=== PATIENT | female | born 1930 | race Hispanic/Latino ===

== ENCOUNTER 2016-05-28 11:42 | Inpatient (IN) | payer MEDICARE, BC ==
[2016-05-28 11:57] VITALS: BMI 25.8
[2016-05-28] MEDS ORDERED: Sodium Chloride 0.9% 1,000 ML IV STA (12:00)
[2016-05-28 12:13] LABS: ADD MANUAL DIFF? NO
[2016-05-28 12:16] LABS: BASO # 0.02 K/mm3 (0.0-2.0); BASO % 0.2 % (0.0-3.0); EOS % 0.2 % (1.5-5.0); GRAN # 8.65 (1.4-6.5); GRAN % 79.1 % (50.0-68.0); HEMATOCRIT 36.7 % (36.0-48.0); LYMPH # 1.8 (1.2-3.4); LYMPH % 16.4 % (22.0-35.0); MEAN CELL VOLUME 89.1 fL (80.0-105.0); MEAN CORPUSCULAR HEMOGLOBIN 31.8 pg (25.0-35.0); MEAN CORPUSCULAR HGB CONC 35.7 g/dl (31.0-37.0); MEAN PLATELET VOLUME 9.1 fl (7.0-11.0); MONO # 0.5 (0.1-0.6); MONO % 4.1 % (1.0-6.0); PLATELET COUNT 244 10^3/uL (120.0-450.0); WHITE BLOOD COUNT 10.9 10^3/ul (4.5-11.0)
[2016-05-28 12:28] LABS: INR 1.04 (0.93-1.08); PARTIAL THROMBOPLASTIN TIME 24.5 Seconds (23.7-30.8)
[2016-05-28 12:29] LABS: ALB/GLOB RATIO 1.3 (1.1-1.8); ALKALINE PHOSPHATASE 103 U/L (38-133); ALT/SGPT 20 U/L (7-56); AST/SGOT 30 U/L (15-39); BILIRUBIN,TOTAL 0.8 mg/dL (0.2-1.3); BLOOD UREA NITROGEN 12 mg/dL (7-21); CALCIUM 8.9 mg/dL (8.4-10.5); CARBON DIOXIDE 22 mmol/L (21-33); CHLORIDE 97 mmol/L (98-107); GFR AFRICAN-AMERICAN > 60; GLUCOSE,RANDOM 140 mg/dL (70-110); POTASSIUM 4.1 mmol/L (3.6-5.0); SODIUM 130 mmol/L (132-148); TOTAL PROTEIN 7.7 g/dL (5.8-8.3)
[2016-05-28 12:40] LABS: TROPONIN I 0.01 ng/mL
[2016-05-28 12:46] LABS: URINE BILIRUBIN NEGATIVE (NEGATIVE); URINE BLOOD TRACE-INTACT (NEGATIVE); URINE GLUCOSE (UA) NEGATIVE (NEGATIVE); URINE KETONE 15 mg/dL (NEGATIVE); URINE LEUKOCYTE ESTERASE NEGATIVE Leu/uL (NEGATIVE); URINE PROTEIN TRACE mg/dL (<30 mg/dL); URINE UROBILINOGEN 0.2 E.U./dL (<1 E.U./dL)
[2016-05-28 12:47] LABS: URINE APPEARANCE SL CLOUDY (CLEAR); URINE COLOR YELLOW (YELLOW)
--- NOTE | 2016-05-28 12:51 | ED PDOC ---
Arrival/HPI - General Chief Complaint: Altered Mental Status Time Seen by Provider: 05/28/16 11:47 Historian: Caregiver EM Caveat: Altered Mental Status - History of Present Illness Narrative History of Present Illness (Text): 05/28/16 11:47 A 85 year old female is brought into the emergency department via EMS for altered mental status. Patient's caregiver states patient woke up this morning with an altered mental status. She states at baseline the patient is alert, oriented x3, speaks without difficulty and is functional. She states last night , before bed she was at her normal mental status. This morning when the patient woke up she was aphasic. Caregiver notes the patient had one episode of vomiting prior to arrival. HPI and ROS limited due to patient's altered mental status. PMD: Dr. Lin Past Medical History - Provider Review Nursing Documentation Reviewed: Yes - Tetanus Immunization Tetanus Immunization: Unknown - Cardiac Hx Cardiac Disorders: Yes Hx Hypertension: Yes - Pulmonary Hx Respiratory Disorders: No - Neurological Hx Neurological Disorder: Yes Hx Dementia: Yes - HEENT Hx HEENT Disorder: No - Renal Hx Renal Disorder: No - Endocrine/Metabolic Hx Endocrine Disorders: Yes Hx Hypothyroidism: Yes - Hematological/Oncological Hx Blood Disorders: No - Integumentary Hx Dermatological Disorder: No - Musculoskeletal/Rheumatological Hx Musculoskeletal Disorders: Yes Hx Falls: Yes Hx Osteoporosis: Yes - Gastrointestinal Hx Gastrointestinal Disorders: Yes Hx Diarrhea: Yes (CHRONIC) - Genitourinary/Gynecological Hx Genitourinary Disorders: Yes Hx Urinary Tract Infection: Yes - Psychiatric Hx Psychophysiologic Disorder: Yes Hx Depression: Yes Hx Emotional Abuse: No Hx Physical Abuse: No Hx Substance Use: No - Surgical History Hx Appendectomy: Yes - Anesthesia Hx Anesthesia: Yes - Suicidal Assessment Feels Threatened In Home Enviroment: No Family/Social History - Physician Review Nursing Documentation Reviewed: Yes Family/Social History: No Known Family HX Smoking Status: Never Smoked Hx Alcohol Use: No Hx Substance Use: No Hx Substance Use Treatment: No Allergies/Home Meds Allergies/Adverse Reactions: Allergies No Known Allergies Allergy (Verified 05/28/16 11:57) Home Medications: Home Meds Medication Instructions Recorded Confirmed Acetyl/Methyl-B12/Lmefolate Ca 1 tab PO DAILY 05/28/16 05/28/16 [l-Methyl-Mc Nac Tablet] Cholecalciferol (Vitamin D3) 1 tab PO DAILY 05/28/16 05/28/16 [Vitamin D3] Levothyroxine [Synthroid] 1.5 tab PO DAILY 05/28/16 05/28/16 Zolpidem [Ambien] 10 mg PO HS 05/28/16 05/28/16 Review of Systems - Review of Systems Systems not reviewed;Unavailable: Altered Mental Status Physical Exam - Physical Exam Narrative Physical Exam (Text): - Physical exam Head: Present: Atraumatic, Normocephalic Pupils: Present: PERRL Extraocular Muscles: Present: EOMI Conjunctiva: Present: Normal Mouth: Present: Moist Mucous Membranes Neck: Present: Normal Range of Motion. No: MIDLINE TENDERNESS, Paraspinal Tenderness Respiratory/Chest: Present: Clear to Auscultation, Good Air Exchange. No: Respiratory Distress, Accessory Muscle Use, Tachypneic Cardiovascular: Present: Regular Rate and Rhythm, Normal S1, S2, Peripheral Pulses Present. No: Murmurs Abdomen: Present: Normal Bowel Sounds, No: Tenderness, Peritoneal Signs, Rebound, Guarding, Distention Back: Present: Normal Inspection. No: Midline Tenderness, Paraspinal Tenderness Upper Extremity: Present: Normal Inspection. No: Cyanosis, Edema Lower Extremity: Present: Normal Inspection. No: Edema Neurological: Patient is not speaking but is able to follow commands. No other focal neurological deficits. Skin: Present: Warm, Dry, Normal Color. No: Rashes Lymphatic: Present: OX3, NI, NC Psychiatric: Present: Awake and Alert. Vital Signs Reviewed: Yes Vital Signs Temp Pulse Resp BP Pulse Ox 05/28/16 17:00 99.8 F H 85 18 125/77 92 L 05/28/16 15:00 78 18 117/79 90 L 05/28/16 13:46 100 H 20 140/83 95 05/28/16 11:54 100.8 F H Temperature: Febrile Blood Pressure: Normal Pulse: Regular Respiratory Rate: Normal Appearance: Positive for: Non-Toxic Pain Distress: None Mental Status: No: Alert and Oriented X 3 (Patient is nonverbal but able to follow commands) Finger Stick Blood Glucose: 148 Medical Decision Making ED Course and Treatment: 05/28/16 11:47 Impression: A 85 year old female with an altered mental status. On examination the patient is awake, alert but aphasic. Patient is able to follow commands. Differential Diagnosis include but are not limited to: Pneumonia vs. UTI vs. Infection vs. Dehydration Plan: -- EKG -- Chest X-ray -- Labs -- Urinalysis -- Zofran and IV Fluids -- Reassess and disposition Progress Notes: EKG: Ordered, reviewed, and independently interpreted by me. Rate : 90 BPM Rhythm : NSR Interpretation : No ST-segment elevations, normal intervals. 05/28/16 13:28 Chest x-ray: As read by me, Cardiomegaly with bilateral infiltrates. 05/28/16 14:16 pt will be admitted with dx of PNA and UTI abx ordered family bedside, aware of and agree with plan dw Dr. Kaye, accepted admission 05/28/16 14:[address]: Creator and Dictator : ALVARO WATTS MD IMPRESSION: Virtually nondiagnostic examination due to motion degraded images. Allowing for this, no acute intracranial hemorrhage. Mild global parenchymal volume loss. Ventricular dilatation is out of proportion to the sulcal prominence and normal pressure hydrocephalus is a consideration. Clinical correlation and follow-up is advised. 05/28/16 14:15 Abdomen/Pelvis CT: Creator and Dictator: ALVARO WATTS MD IMPRESSION: 1. Large right paraesophageal hiatal hernia. 2. Fecal stasis in the sigmoid colon and rectum. Sigmoid diverticulosis without CT evidence for acute diverticulitis. No evidence of bowel obstruction. 3. 3 mm nonobstructing stone in the lower pole of the left kidney. 4. Small bilateral pleural effusions. - Lab Interpretations Microbiology Results: Microbiology Results 05/28/16 12:30 Blood-Venous Blood Culture - Preliminary NO GROWTH AFTER 4 DAYS 05/28/16 12:00 Blood-Venous Blood Culture - Preliminary NO GROWTH AFTER 4 DAYS 05/28/16 12:30 Urine Urine Culture - Final Klebsiella Pneumoniae Ssp Pneu Lab Results: 05/28/16 12:00 05/28/16 12:00 Lab Results 05/28/16 12:30: pO2 106 H, VBG pH 7.39, VBG pCO2 38.0 L, VBG HCO3 23.0, VBG Total CO2 24.2, VBG O2 Sat (Calc) 99.4 H, VBG Base Excess -1.7 L, VBG Potassium 4.1, Sodium 134.0, Chloride 101.0, Glucose 154 H, Lactate 2.3 H, FiO2 21.0, Venous Blood Potassium 4.1, Urine Color Yellow, Urine Appearance Sl cloudy, Urine pH 6.0, Ur Specific [place] 1.025, Urine Protein Trace H, Urine Glucose ( UA) Negative, Urine Ketones 15 H, Urine Blood Trace-intact H, Urine Nitrate Negative, Urine Bilirubin Negative, Urine Urobilinogen 0.2, Ur Leukocyte Esterase Negative, Urine RBC 0 - 2, Urine WBC 10 - 15, Ur Epithelial Cells 0 - 2 , Urine Bacteria Mod 05/28/16 12:00: WBC 10.9 D, RBC 4.12, Hgb 13.1, Hct 36.7, MCV 89.1, MCH 31.8, MCHC 35.7, RDW 13.0, Plt Count 244, MPV 9.1, Gran % 79.1 H, Lymph % (Auto) 16.4 L, [place] % (Auto) 4.1, Eos % (Auto) 0.2 L, Baso % (Auto) 0.2, Gran # 8.65 H, Lymph # 1.8, [place] # 0.5, Eos # 0.0, Baso # 0.02, PT 11.2, INR 1.04, APTT 24.5, Sodium 130 L, Chloride 97 L, Potassium 4.1, Carbon Dioxide 22, Anion Gap 15, BUN 12, Creatinine 0.5, Est GFR ( Amer) > 60, Est GFR (Non-Af Amer) > 60 , Random Glucose 140 H, Calcium 8.9, Total Bilirubin 0.8, AST 30, ALT 20, Alkaline Phosphatase 103, Lactate Dehydrogenase 562, Total Creatine Kinase 55, Troponin I 0.01, NT-Pro-B Natriuret Pep 204, Total Protein 7.7, Albumin 4.3, Globulin 3.4, Albumin/Globulin Ratio 1.3 I have reviewed the lab results: Yes - RAD Interpretation Radiology Orders: 05/28/16 11:49 HEAD W/O CONTRAST [CT] Stat 05/28/16 11:52 CHEST PORTABLE [RAD] Stat 05/28/16 13:09 ABD & PELVIS W/O PO OR IV CONT [CT] Stat - Medication Orders Current Medication Orders: Discontinued Medications Acetaminophen (Tylenol 650 Mg Supp) 650 mg RC STAT STA Stop: 05/28/16 14:21 Last Admin: 05/28/16 14:56 Dose: 650 MG Enoxaparin Sodium (Lovenox) 40 mg SC DAILY DAVID PRN Reason: Protocol Last Admin: 05/30/16 09:43 Dose: 40 MG Protocol for PTT Monitoring Document 05/30/16 09:43 SD (Rec: 05/30/16 09:43 [place] [id number]) Protocol Protocol for PTT Monitoring Following clinical pathway protocol (regime/therapy) Subcutaneous Administrations Document 05/30/16 09:43 SD (Rec: 05/30/16 09:43 [place] [id number]) Injection Site MAR Injection Site Right Abdomen Charges for Administration # of Subcutaneous Administrations 1 Sodium Chloride (Sodium Chloride 0.9%) 1,000 mls @ 1,000 mls/hr IV .Q1H STA Stop: 05/28/16 12:59 Last Admin: 05/28/16 12:45 Dose: 1,000 MLS/HR eMAR Start Stop Document 05/28/16 12:45 EWO (Rec: 05/28/16 12:46 EWO [id number]) Intravenous Solution Start Date 05/28/16 Start Time 12:45 End Date 05/28/16 End time 13:45 Total Infusion Time 60 Ceftriaxone Sodium (Rocephin 1 Gram Ivpb) 100 mls @ 200 mls/hr IV STAT STA PRN Reason: Protocol Stop: 05/28/16 13:36 Last Admin: 05/28/16 13:51 Dose: 200 MLS/HR eMAR Start Stop Document 05/28/16 13:51 EWO (Rec: 05/28/16 13:54 EWO [id number]) Intravenous Solution Start Date 05/28/16 Start Time 13:54 End Date 05/28/16 End time 14:24 Total Infusion Time 30 Azithromycin (Zithromax 500mg In Ns) 250 mls @ 166.667 mls/hr IV STAT STA PRN Reason: Protocol Stop: 05/28/16 15:47 Last Admin: 05/28/16 14:57 Dose: 166.667 MLS/HR eMAR Start Stop Document 05/28/16 14:57 EWO (Rec: 05/28/16 14:57 EWO [id number]) Intravenous Solution Start Date 05/28/16 Start Time 14:57 Dextrose/Sodium Chloride (Dextrose 5%/0.45% Ns 1000 Ml) 1,000 mls @ 50 mls/hr IV .Q20H DAVID Last Admin: 05/30/16 09:44 Dose: Levofloxacin/Dextrose (Levaquin 500mg) 100 mls @ 100 mls/hr IVPB DAILY DAVID Last Admin: 05/30/16 09:43 Dose: 100 MLS/HR eMAR Start Stop Document 05/30/16 09:43 SD (Rec: 05/30/16 09:43 SD [id number]) Intravenous Solution Start Date 05/30/16 Start Time 09:43 End Date 05/30/16 End time 10:43 Total Infusion Time 60 Metronidazole (Flagyl) 100 mls @ 100 mls/hr IVPB Q8 DAVID PRN Reason: Protocol Last Admin: 05/29/16 06:01 Dose: 100 MLS/HR eMAR Start Stop Document 05/29/16 06:01 CHIQUIS (Rec: 05/29/16 06:01 CHIQUIS [id number]) Intravenous Solution Start Date 05/29/16 Start Time 06:01 End Date 05/29/16 End time 07:01 Total Infusion Time 60 Potassium Chloride (Potassium Chloride 20 Meq/100 Ml) 100 mls @ 50 mls/hr IVPB ONCE ONE Stop: 05/29/16 13:30 Last Admin: 05/29/16 12:22 Dose: 50 MLS/HR eMAR Start Stop Document 05/29/16 12:22 JFR (Rec: 05/29/16 12:22 JFR [id number]) Intravenous Solution Start Date 05/29/16 Start Time 12:22 End Date 05/29/16 End time 14:22 Total Infusion Time 120 Levothyroxine Sodium (Synthroid) 50 mcg PO 0600 [facility] Last Admin: 05/30/16 07:44 Dose: 50 MCG Ondansetron HCl (Zofran Inj) 4 mg IVP STAT STA Stop: 05/28/16 12:01 Last Admin: 05/28/16 12:45 Dose: 4 MG IVP Administration Document 05/28/16 12:45 EWO (Rec: 05/28/16 12:45 EWO [id number]) Charges for Administration # of IVP Administrations 1 Ondansetron HCl (Zofran Inj) 4 mg IVP Q4H PRN PRN Reason: Nausea/Vomiting Last Admin: 05/28/16 21:42 Dose: 4 MG IVP Administration Document 05/28/16 21:42 CHIQUIS (Rec: 05/28/16 21:42 [place] [facility] [id number] Charges for Administration # of IVP Administrations 1 Pantoprazole Sodium (Protonix Inj) 40 mg IVP DAILY DAVID Last Admin: 05/30/16 09:43 Dose: 40 MG IVP Administration Document 05/30/16 09:43 SD (Rec: 05/30/16 09:43 [place] [id number]) Charges for Administration # of IVP Administrations 1 - Scribe Statement The provider has reviewed the documentation as recorded by the Scribe Erna Lane Provider Scribe Attestation: All medical record entries made by the Scribe were at my direction and personally dictated by me. I have reviewed the chart and agree that the record accurately reflects my personal performance of the history, physical exam, medical decision making, and the department course for this patient. I have also personally directed, reviewed, and agree with the discharge instructions and disposition. Disposition/Present on Arrival - Present on Arrival Any Indicators Present on Arrival: No History of DVT/PE: No History of Uncontrolled Diabetes: No Urinary Catheter: No History of Decub. Ulcer: No History Surgical Site Infection Following: None - Disposition Have Diagnosis and Disposition been Completed?: Yes Diagnosis: UTI (urinary tract infection), Pneumonia Disposition: HOSPITALIZED Disposition Time: 14:17 Patient Plan: Admission Condition: GOOD
[2016-05-28 12:53] LABS: VENOUS BLOOD GAS BASE EXCESS -1.7 mmol/L (0.0-2.0); VENOUS BLOOD PH 7.39 (7.32-7.43)
[2016-05-28 13:00] LABS: URINE RBC 0 - 2 /hpf (0-2)
[2016-05-28 13:01] LABS: URINE BACTERIA MOD (NEG); URINE EPITHELIAL CELLS 0 - 2 /hpf (0-5)
[2016-05-28] MEDS ORDERED: cefTRIAXone 1 gm 100 ML IV STA (13:07)
--- NOTE | 2016-05-28 14:00 | CT ---
PROCEDURE: CT HEAD WITHOUT CONTRAST. HISTORY: DONAHUE x2 weeks COMPARISON: None available. TECHNIQUE: Axial computed tomography images were obtained through the head/brain without intravenous contrast. Radiation dose: Total exam DLP = 677.45 mGy-cm. FINDINGS: HEMORRHAGE: No intracranial hemorrhage. BRAIN: Examination is virtually nondiagnostic due to motion degraded images. Allowing for this, there is no mass, mass effect or abnormal extra-axial fluid collection. There are coarse atherosclerotic calcifications in the cavernous carotid arteries. VENTRICLES: There is moderate ventricular dilatation, out of proportion for sulcal prominence related to global parenchymal volume loss. CALVARIUM: Unremarkable. PARANASAL SINUSES: Unremarkable as visualized. No significant inflammatory changes. MASTOID AIR CELLS: Unremarkable as visualized. No inflammatory changes. OTHER FINDINGS: None. IMPRESSION: Virtually nondiagnostic examination due to motion degraded images. Allowing for this, no acute intracranial hemorrhage. Mild global parenchymal volume loss. Ventricular dilatation is out of proportion to the sulcal prominence and normal pressure hydrocephalus is a consideration. Clinical correlation and follow-up is advised.
--- NOTE | 2016-05-28 14:13 | CT ---
PROCEDURE: CT Abdomen and Pelvis without intravenous contrast HISTORY: Nausea and vomiting COMPARISON: 02/14/2012 TECHNIQUE: CT scan of the abdomen and pelvis was performed without administration of oral and intravenous contrast. Coronal and sagittal reformatted images were obtained. Radiation dose: Total exam DLP = images were obtained 964.17 mGy-cm. FINDINGS: LOWER THORAX: There are small bilateral pleural effusions. LIVER: Unremarkable. No gross lesion or ductal dilatation. GALLBLADDER AND BILE DUCTS: Gallbladder is distended. No calcified gallstones. PANCREAS: Mild diffuse atrophy. No gross lesion or ductal dilatation. SPLEEN: Unremarkable. ADRENALS: Mild thickening of the right adrenal gland. No discrete nodule. KIDNEYS AND URETERS: Both kidneys are normal in size. There is a 3 mm nonobstructing stone in the lower pole of the left kidney. There is no hydronephrosis. VASCULATURE: The aorta is tortuous. There atherosclerotic aortoiliac calcifications. No aortic aneurysm. BOWEL: The small bowel loops are normal in caliber. There is sigmoid diverticulosis without CT evidence for acute diverticulitis. There is fecal stasis in the sigmoid colon and rectum. APPENDIX: Unremarkable. Normal appendix. PERITONEUM: No free fluid. No free air. LYMPH NODES: No enlarged lymph nodes. BLADDER: Within normal limits. REPRODUCTIVE: The uterus is normal in size. BONES: There is severe levoscoliosis in the lumbar spine. There is diffuse bone demineralization and multilevel degenerative changes. OTHER FINDINGS: There is enlarged right paraesophageal hiatal hernia. IMPRESSION: 1. Large right paraesophageal hiatal hernia. 2. Fecal stasis in the sigmoid colon and rectum. Sigmoid diverticulosis without CT evidence for acute diverticulitis. No evidence of bowel obstruction. 3. 3 mm nonobstructing stone in the lower pole of the left kidney. 4. Small bilateral pleural effusions.
[2016-05-28] MEDS ORDERED: Azithromycin 500MG/NS 250ml 250 ML IV STA (14:18)
--- NOTE | 2016-05-28 14:20 | RAD ---
HISTORY: cough COMPARISON: No prior. FINDINGS: LUNGS: The lungs are clear. There is mild venous congestion. PLEURA: No significant pleural effusion identified, no pneumothorax apparent. CARDIOVASCULAR: There is mild cardiomegaly. Atherosclerotic aortic arch calcifications are present. . OSSEOUS STRUCTURES: There is an old deformity in the left proximal humerus. VISUALIZED UPPER ABDOMEN: Normal. OTHER FINDINGS: There is a right pericardiac hiatal hernia. IMPRESSION: Mild pulmonary venous congestion. Cardiomegaly. No active pulmonary disease. Right paracardiac hiatal hernia with
--- NOTE | 2016-05-28 15:25 | CP.PCM.HP ---
<Jason Nunez - Last Filed: 05/28/16 15:16> History of Present Illness - History of Present Illness History of Present Illness: 85 y/o F with PMH hypothyroidism, dyslipidemia, osteoarthritis, and hx of compression fracture presents to the ED for AMS for the past day. Pt is accompanied by her son who provides medical hx. Son states that last night his mother was talking normally and not complaining of anything. Pt woke up this morning confused and nonverbal. Pt also has a production clerks supervisor, who stays with her . Purchasing Agent said that this morning, pt had bladder and bowel incontinence, which is very unusual for the patient. Pt was also noted to throw up several times. Emesis was nonbloody and nonbilious, containing food particles. Pt has no prior episodes of altered mental status. Unable to obtain full review of systems as the patient is confused and unable to follow commands at this time. PMH: Hypothyroidism, dyslipidemia, osteoarthritis, and hx of compression fracture Surgical Hx: Ankle fracture Family Hx: Mother of heart condition in s Social Hx: No alcohol, tobacco, or illicit drug use Allergies: NKDA Medications: Levothyroxine, Zetia, Ambien, L-methyl MC nac, D3 Present on Admission - Present on Admission Any Indicators Present on Admission: No Review of Systems - Review of Systems Systems not reviewed;Unavailable: Altered Mental Status Past Patient History - Tetanus Immunizations Tetanus Immunization: Unknown - Past Social History Smoking Status: Never Smoked - CARDIAC Hx Cardiac Disorders: Yes Hx Hypertension: Yes - PULMONARY Hx Respiratory Disorders: No - NEUROLOGICAL Hx Neurological Disorder: Yes Hx Dementia: Yes - HEENT Hx HEENT Problems: No - RENAL Hx Chronic Kidney Disease: No - ENDOCRINE/METABOLIC Hx Endocrine Disorders: Yes Hx Hypothyroidism: Yes - HEMATOLOGICAL/ONCOLOGICAL Hx Blood Disorders: No - INTEGUMENTARY Hx Dermatological Problems: No - MUSCULOSKELETAL/RHEUMATOLOGICAL Hx Musculoskeletal Disorders: Yes Hx Falls: Yes Hx Osteoporosis: Yes - GASTROINTESTINAL Hx Gastrointestinal Disorders: Yes Hx Diarrhea: Yes (CHRONIC) - GENITOURINARY/GYNECOLOGICAL Hx Genitourinary Disorders: Yes Hx Urinary Tract Infection: Yes - PSYCHIATRIC Hx Psychophysiologic Disorder: Yes Hx Depression: Yes Hx Emotional Abuse: No Hx Physical Abuse: No Hx Substance Use: No - SURGICAL HISTORY Hx Appendectomy: Yes - ANESTHESIA Hx Anesthesia: Yes Meds Allergies/Adverse Reactions: Allergies Allergy/AdvReac Type Severity Reaction Status Date / Time No Known Allergies Allergy Verified 05/28/16 11:57 Physical Exam - Constitutional Appears: No Acute Distress, Confused - Head Exam Head Exam: ATRAUMATIC, NORMAL INSPECTION, NORMOCEPHALIC - Eye Exam Eye Exam: Normal appearance, PERRL - ENT Exam ENT Exam: Mucous Membranes Moist, Normal Exam - Respiratory Exam Respiratory Exam: Clear to Auscultation Bilateral, NORMAL BREATHING PATTERN. absent: Rhonchi, Wheezes - Cardiovascular Exam Cardiovascular Exam: RRR, +S1, +S2 - GI/Abdominal Exam GI & Abdominal Exam: Normal Bowel Sounds, Soft. absent: Tenderness - Extremities Exam Extremities exam: Positive for: normal inspection, pedal edema. Negative for: calf tenderness - Neurological Exam Neurological exam: Alert Additional comments: Responsive to painful stimuli. Unable to follow commands or verbal cues. - Skin Skin Exam: Intact, Normal Color, Warm Results - Vital Signs Recent Vital Signs: Last Vital Signs Temp 100.8 F H 05/28/16 11:54 Pulse 100 H 05/28/16 13:46 Resp 20 05/28/16 13:46 BP 140/83 05/28/16 13:46 Pulse Ox 95 05/28/16 13:46 - Labs Result Diagrams: 05/28/16 12:00 05/28/16 12:00 Assessment & Plan - Assessment and Plan (Free Text) Plan: 85 y/o F with PMH hypothyroidism, dyslipidemia, osteoarthritis, and hx of compression fracture presents to the ED for AMS. Head CT was unremarkable for any acute findings. Abdomen and pelvis CT did not show any acute pathology. Chest x-ray revealed mild cardiomegaly and possible b/l infiltrates. Pt was also noted to be febrile on admission. Pt may have had seizure or infectious etiology likely causing AMS. Will hold ambien at this time to evaluate mental status in AM. Pt does have a living will and will be DNR/DNI. Pt will be admitted to the hospital for further workup. 1. AMS - Infectious vs seizure vs CVA etiology - Procal ordered - Levaquin and flagyl ordered, will cover for aspiration pneumonia - Neurochecks q4h - Brain MRI in AM - EEG - Echocardiogram - TSH ordered - Neurology consulted, Dr. Niurka Monahan - Fall, seizure, aspiration precautions - Swallow eval 2. Hyponatremia - Urine Na - Urine Osm - D5W 1/2 NS @ 50 cc/hr 3. Hx of dyslipidemia - Restart zetia 4. Hx of hypothyroidism - Restart levothyroxine 5. PPX - Protonix - Lovenox - Zofran Seen, reviewed, and discussed with attending Mayra, PGY-1 <Mikki MINA,[employer] - Last Filed: 05/28/16 17:45> Results - Vital Signs Recent Vital Signs: Last Vital Signs Temp 99.8 F H 05/28/16 17:00 Pulse 85 05/28/16 17:00 Resp 18 05/28/16 17:00 BP 125/77 05/28/16 17:00 Pulse Ox 92 L 05/28/16 17:00 - Labs Result Diagrams: 05/28/16 12:00 05/28/16 12:00 Labs: Laboratory Results - last 24 hr 05/28/16 05/28/16 15:30 16:30 pO2 201 H VBG pH 7.41 VBG pCO2 35.0 L VBG HCO3 22.2 VBG O2 Sat (Calc) 99.7 H VBG Base Excess -1.9 L TSH 3rd Generation 3.76 Attending/Attestation - Attestation I have personally seen and examined this patient.: Yes I have fully participated in the care of the patient.: Yes I have reviewed all pertinent clinical information: Yes Notes (Text): Patient was seen and examined with medical billing service .Agreed with resident assessment and plan. 85 F with PMH of Hypothryoidism, OA, bed and wheel chair bound was admitted with change of mental status,unable to talk ,last time was seen talking last night, has fever,possible right lower lobe aspiration Pneumonia, possible seizure/less likely CVA as she was found to be incontinence of urine and stool, We will start patient on IV antibiotics, we will follow up cultures and will check procalcitonin level. We will also get MRI of ,EEG and Neuro consult. Patient is DNR/DNI, no tube feeding, no Hemodialysis as per living will Management plan was discussed in detail with patient son who was at bed side. Education was provided.
[2016-05-28 16:05] LABS: VENOUS BLOOD GAS BASE EXCESS -1.9 mmol/L (0.0-2.0); VENOUS BLOOD PH 7.41 (7.32-7.43)
[2016-05-28] MEDS: Dextrose 5%/0.45% NS 1,000 ML IV SCH (16:19)
--- NOTE | 2016-05-28 18:20 | CARD ---
APPROVED REPORT EKG Measurement Heart [id number] <Conclusion> Normal sinus rhythm Nonspecific ST and T wave abnormality Prolonged QT Abnormal ECG
[2016-05-28] MEDS: metroNIDAZOLE IV 500 mg/100 ml 100 ML IVPB SCH (21:40)
[2016-05-29] MEDS: metroNIDAZOLE IV 500 mg/100 ml 100 ML IVPB SCH (06:01)
[2016-05-29] MEDS: Levothyroxine 50 MCG TAB PO SCH ×2 (06:03→06:05)
[2016-05-29] MEDS: Enoxaparin 40 mg Syringe SC SCH (09:45)
[2016-05-29 10:29] LABS: HEMATOCRIT 32.6 % (36.0-48.0); MEAN CELL VOLUME 89.1 fL (80.0-105.0); MEAN CORPUSCULAR HEMOGLOBIN 31.4 pg (25.0-35.0); MEAN CORPUSCULAR HGB CONC 35.3 g/dl (31.0-37.0); MEAN PLATELET VOLUME 9.1 fl (7.0-11.0); RED CELL DISTRIBUTION WIDTH 13.2 % (11.5-14.5)
[2016-05-29 10:38] LABS: ALB/GLOB RATIO 1.2 (1.1-1.8); ALKALINE PHOSPHATASE 76 U/L (38-133); ALT/SGPT 17 U/L (7-56); AST/SGOT 35 U/L (15-39); BLOOD UREA NITROGEN 9 mg/dL (7-21); CARBON DIOXIDE 24 mmol/L (21-33); CHLORIDE 98 mmol/L (95-110); GFR AFRICAN-AMERICAN > 60; GLUCOSE,RANDOM 111 mg/dL (70-110); POTASSIUM 3.5 mmol/L (3.6-5.0); SODIUM 131 mmol/L (132-148); TOTAL PROTEIN 6.5 g/dL (5.8-8.3)
--- NOTE | 2016-05-29 11:03 | CP.PCM.PN ---
<Jason Nunez - Last Filed: 05/29/16 11:28> Subjective - Date & Time of Evaluation Date of Evaluation: 05/29/16 Time of Evaluation: 11:00 - Subjective Subjective: Pt seen and examined at bedside. No acute events overnight. Pt is more alert today and able to respond appropriately to commands. Pt is NPO at this time. Denies CP, SOB, N/V/D, fevers. Objective - Vital Signs/Intake and Output Vital Signs (last 24 hours): Temp Pulse Resp BP Pulse Ox 98.5 F 82 19 122/72 96 05/29/16 05:45 05/29/16 10:00 05/29/16 05:45 05/29/16 05:45 05/29/16 05:45 Intake and Output: 05/29/16 05/29/16 06:59 18:59 Intake Total 600 Balance 600 - Medications Medications: Current Medications Enoxaparin Sodium (Lovenox) 40 mg SC DAILY DAVID PRN Reason: Protocol Last Admin: 05/29/16 09:45 Dose: 40 mg Dextrose/Sodium Chloride (Dextrose 5%/0.45% Ns 1000 Ml) 1,000 mls @ 50 mls/hr IV .Q20H [facility] Last Admin: 05/28/16 16:19 Dose: 50 mls/hr Levofloxacin/Dextrose (Levaquin 500mg) 100 mls @ 100 mls/hr IVPB DAILY [facility] Last Admin: 05/29/16 09:42 Dose: 100 mls/hr Metronidazole (Flagyl) 100 mls @ 100 mls/hr IVPB Q8 DAVID PRN Reason: Protocol Last Admin: 05/29/16 06:01 Dose: 100 mls/hr Levothyroxine Sodium (Synthroid) 50 mcg PO 0600 [facility] Last Admin: 05/29/16 06:05 Dose: Not Given Ondansetron HCl (Zofran Inj) 4 mg IVP Q4H PRN PRN Reason: Nausea/Vomiting Last Admin: 05/28/16 21:42 Dose: 4 mg Pantoprazole Sodium (Protonix Inj) 40 mg IVP DAILY [facility] Last Admin: 05/29/16 09:44 Dose: 40 mg - Labs Labs: 05/29/16 10:20 05/29/16 10:20 PT 11.2 Seconds (9.9-11.8) 05/28/16 12:00 INR 1.04 (0.93-1.08) 05/28/16 12:00 APTT 24.5 Seconds (23.7-30.8) 05/28/16 12:00 - Constitutional Appears: Well, No Acute Distress - Head Exam Head Exam: ATRAUMATIC, NORMAL INSPECTION - ENT Exam ENT Exam: Mucous Membranes Moist, Normal Exam - Respiratory Exam Respiratory Exam: Clear to Ausculation Bilateral, NORMAL BREATHING PATTERN. absent: Rhonchi, Wheezes - Cardiovascular Exam Cardiovascular Exam: RRR, +S1, +S2 - GI/Abdominal Exam GI & Abdominal Exam: Soft, Normal Bowel Sounds. absent: Tenderness - Extremities Exam Extremities Exam: Normal Inspection. absent: Calf Tenderness, Pedal Edema - Neurological Exam Neurological Exam: Alert, Awake. absent: Oriented x3 (AAOx2.) - Skin Skin Exam: Intact, Normal Color, Warm Assessment and Plan - Assessment and Plan (Free Text) Plan: 85 y/o F with PMH hypothyroidism, dyslipidemia, osteoarthritis, and hx of compression fracture presents to the ED for AMS. Pt is alert and oriented x2, pt is unable to state the year. Pt is more alert and responding to commands appropriately. Pt is still awaiting echo, MRI, EEG, and neuro consult. Will reevaluate once test results are back. Will d/c flagyl and continue levaquin for possible pneumonia at this time. 1. AMS - Improving - Procal negative. - Levaquin continue, stopped flagyl. - Neurochecks q4h - Brain MRI, EEG, Echocardiogram pending. - TSH within normal limits - Neurology consulted, Dr. Niruka Monahan - Fall, seizure, aspiration precautions - Swallow eval pending 2. Hyponatremia - Urine Na and Osm pending - D5W 1/2 NS @ 50 cc/hr 3. Hx of dyslipidemia - Restart zetia 4. Hx of hypothyroidism - Restart levothyroxine 5. PPX - Protonix - Lovenox - Zofran Seen, reviewed, and discussed with attending Mayra, PGY-1 <Esteban Gardiner - Last Filed: 05/29/16 12:03> Objective - Vital Signs/Intake and Output Vital Signs (last 24 hours): Temp Pulse Resp BP Pulse Ox 98.5 F 82 19 122/72 96 05/29/16 05:45 05/29/16 10:00 05/29/16 05:45 05/29/16 05:45 05/29/16 05:45 Intake and Output: 05/29/16 05/29/16 06:59 18:59 Intake Total 600 Balance 600 - Medications Medications: Current Medications Enoxaparin Sodium (Lovenox) 40 mg SC DAILY DAVID PRN Reason: Protocol Last Admin: 05/29/16 09:45 Dose: 40 mg Dextrose/Sodium Chloride (Dextrose 5%/0.45% Ns 1000 Ml) 1,000 mls @ 50 mls/hr IV .Q20H [facility] Last Admin: 05/28/16 16:19 Dose: 50 mls/hr Levofloxacin/Dextrose (Levaquin 500mg) 100 mls @ 100 mls/hr IVPB DAILY [facility] Last Admin: 05/29/16 09:42 Dose: 100 mls/hr Potassium Chloride (Potassium Chloride 20 Meq/100 Ml) 100 mls @ 50 mls/hr IVPB ONCE ONE Stop: 05/29/16 13:30 Levothyroxine Sodium (Synthroid) 50 mcg PO 0600 [facility] Last Admin: 05/29/16 06:05 Dose: Not Given Ondansetron HCl (Zofran Inj) 4 mg IVP Q4H PRN PRN Reason: Nausea/Vomiting Last Admin: 05/28/16 21:42 Dose: 4 mg Pantoprazole Sodium (Protonix Inj) 40 mg IVP DAILY [facility] Last Admin: 05/29/16 09:44 Dose: 40 mg - Labs Labs: 05/29/16 10:20 05/29/16 10:20 PT 11.2 Seconds (9.9-11.8) 05/28/16 12:00 INR 1.04 (0.93-1.08) 05/28/16 12:00 APTT 24.5 Seconds (23.7-30.8) 05/28/16 12:00 Attending/Attestation - Attestation I have personally seen and examined this patient.: Yes I have fully participated in the care of the patient.: Yes I have reviewed all pertinent clinical information, including history, physical exam and plan: Yes Notes (Text): 05/29/16 11:55 85 year old female with past medical history of hypothyroidism, dyslipidemia and arthritis who presented with altered mental status. Differentials include seizure, CVA, infection (PNA). CT head was reviewed. She is pending MRI brain , EEG and neurology evaluation. Swallow evaluation was also requested. Today she is more alert; oriented to self and place. She was started on antibiotics for ?aspiration pneumonia; cxr showed small bilateral pleural effusions. However procalcitonin is negative. Can consider to discontinue antibiotics if cultures are negative. She is on fluids. Hyponatremia is improving. Will replete and repeat potassium. Resume home medications for hypothyroidism and dyslipidemia if she passes swallow evaluation. PT evaluation is requested. Patient is DNR/DNI. Esteban Gardiner MD Hospitalist.
[2016-05-29] MEDS ORDERED: Potassium Chloride 20 mEq 100 ML IVPB ONE (11:31)
--- NOTE | 2016-05-29 12:19 | MRI ---
PROCEDURE: MRI BRAIN WITHOUT CONTRAST HISTORY: AMS COMPARISON: 06/25/2012 TECHNIQUE: Multiplanar, multisequence MR images of the brain were obtained without intravenous contrast enhancement. FINDINGS: HEMORRHAGE: None DWI: No evidence of an acute or early subacute infarction. BRAIN PARENCHYMA: No mass effect or edema. Chronic microvascular changes are seen. There is moderate atrophy with ventricular dilatation VENTRICLES: Unremarkable. No hydrocephalus. CRANIUM: Unremarkable. ORBITS: Grossly unremarkable. PARANASAL SINUSES/MASTOIDS: Clear VASCULAR SYSTEM: Skull base flow voids intact. OTHER FINDINGS: None. IMPRESSION: No acute intracranial findings
[2016-05-29] MEDS: Dextrose 5%/0.45% NS 1,000 ML IV SCH (13:00)
[2016-05-29 13:38] LABS: CHOLESTEROL 222 mg/dL (130-200)
--- NOTE | 2016-05-29 14:09 | CARD ---
APPROVED REPORT EXAM: Two-dimensional and M-mode echocardiogram with Doppler and color Doppler. INDICATION altered mental status 2D DIMENSIONS Left Atrium (2D)4.3 (1.6-4.0cm)IVSd1.0 (0.7-1.1cm) LVDd3.0 (3.9-5.9cm)LVOT Diameter2.0 (1.8-2.4cm) PWd1.0 (0.7-1.1cm)LVDs2.1 (2.5-4.0cm) FS (%) 29.9 %LVEF (%)58.6 (>50%) M-Mode DIMENSIONS Aortic Root1.70 (2.2-3.7cm)Aortic Cusp Exc.0.60 (1.5-2.0cm) Aortic Valve AoV Peak Jrkukzvt477.0cm/sAoV VTI57.3cmAO Peak GR.39mmHg LVOT Peak Bkmzfwzl594.0cm/sLVOT VTI22.20cmAO Mean GR.19mmHg RADHA (VMAX)1.32wo0TSD (VTI)1.22cm2 Mitral Valve E/A ratio0.0 TDI E/Lateral E'0.0E/Medial E'0.0 Tricuspid Valve TR Peak Feesgiwc111kc/sRAP [id number] Peak Gr.50mmHg [id number] LEFT VENTRICLE The left ventricle is normal size. There is normal left ventricular wall thickness. The left ventricular function is normal. The left ventricular ejection fraction is within the normal range. There is mild hypokinesis in the apical anterior wall. The left ventricular diastolic function is normal. No left ventricle thrombus noted on this study. There is no ventricular septal defect visualized. There is no left ventricular aneurysm. There is no mass noted in the left ventricle. RIGHT VENTRICLE The right ventricle is mildly dilated. There is normal right ventricular wall thickness. Systolic function is mildly to moderately reduced. ATRIA The left atrium is moderately dilated. The right atrium is moderately dilated. The interatrial septum is intact with no evidence for an atrial septal defect. AORTIC VALVE The aortic valve is calcified and displays decreased opening. The aortic valve is moderately sclerotic. There is trace aortic regurgitation. There is moderate valvular aortic stenosis. There is no aortic valvular vegetation. MITRAL VALVE The mitral valve is thickened but opens well. Mitral regurgitation is mild. There is no mitral valve stenosis. There is no evidence of mitral valve prolapse. TRICUSPID VALVE The tricuspid valve leaflets are thickened , but open well. There is moderate tricuspid regurgitation.RVSP-60 mmof Hg. There is moderate pulmonary hypertension. There is no tricuspid valve stenosis. There is no tricuspid valve prolapse or vegetation. PULMONIC VALVE The pulmonic valve is mildly thickened. There is trace pulmonic valvular regurgitation. There is no pulmonic valvular stenosis. GREAT VESSELS The aortic root is normal in size. The ascending aorta is normal in size. The pulmonary artery is normal. The IVC is normal in size and collapses >50% with inspiration. PERICARDIAL EFFUSION There is no pleural effusion. There is no pericardial effusion. <Conclusion> The left ventricle is normal size. There is normal left ventricular wall thickness. The left ventricular function is normal. The left ventricular ejection fraction is within the normal range. There is trace aortic regurgitation. Mitral regurgitation is mild. There is moderate tricuspid regurgitation.RVSP-60 mmof Hg. There is moderate pulmonary hypertension.
--- NOTE | 2016-05-29 21:07 | EEG ---
DATE: 05/29/2016 DIAGNOSIS: Altered mental status. CONDITION OF RECORDING: Awake and drowsy. MEDICATIONS: Reviewed via nurse's reconciliation sheet. INTERPRETATION: This is a 16-channel international recording. The background activity is composed o f 6-7 cycles per second. There was limited amount of beta activity of 16-20 cycles per second seen i n this recording. There was increased amount of theta activity of 5-7 cycles per second seen in this tracing. Drowsiness was characterized by mixed beta and theta activities. The sleep was characteri zed by vertex transient waves, sleep spindles and bilateral slowing. Photic stimulation showed no ch leopoldo in the tracing. No paroxysmal activity noted in this recording. CONCLUSION: This is an abnormal EEG due to presence of diffuse slowing throughout both electrical fi elds consistent with bilateral cerebral dysfunction. Please clinically correlate. No evidence of an y epileptiform activity. Carloz Monahan MD cc: [id number] TT: 05/29/2016 21:06:56 Confirmation # [id number] Dictation # [id number] mn
--- NOTE | 2016-05-30 06:52 | CON ---
DATE: 05/29/2016 HISTORY OF PRESENT ILLNESS: This is an 85-year-old white female with past medical history of hypothy roidism, arthritis, dyslipidemia, history of compression fracture, and came to the Emergency Room wit h confusion. The patient vomited at home and electric sign assembler found her unresponsive for a brief period, be came confused, nonverbal and brought her here to the hospital, and a CAT scan of the head was done wh ich was reported negative. PAST MEDICAL HISTORY: Hypothyroidism, dyslipidemia, compression fracture. SOCIAL HISTORY: Does not smoke, does not drink. ALLERGIES: No known drug allergies. REVIEW OF SYSTEMS: A 10-point review of system was negative. PHYSICAL EXAMINATION: VITAL SIGNS: Blood pressure 140/83. HEENT: Normocephalic, atraumatic. NECK: Supple. NEUROLOGIC: Awake, oriented to self and place. Cranial nerves II through XII were tested. Pupils r eactive. EOMs intact. Visual full. No facial asymmetry. Tongue midline. MOTOR: Spontaneous movement of both upper and lower extremities was noted, more upper than the lower . REFLEXES: Deep tendon reflexes 1+. Both plantars are downgoing. SENSORY: Appears intact. CEREBELLAR GAIT: Deferred. The patient's gait, unable to walk. Mannequin Coloring Artist 24 hours. IMPRESSION: An 85-year-old white female with a past medical history of hypothyroidism, arthritis, hi story of compression fracture, who came with altered mental status and brief period of unresponsivene ss. CAT scan and MRI was normal and the patient improved. PLAN: Continue present management. We will follow up. Stevo Monahan MD cc: [id number] TT: 05/30/2016 06:52:20 Confirmation # [id number] Dictation # [id number] mn
[2016-05-30 07:26] LABS: ALB/GLOB RATIO 1.2 (1.1-1.8); ALKALINE PHOSPHATASE 76 U/L (38-133); ALT/SGPT 18 U/L (7-56); AST/SGOT 31 U/L (15-39); BILIRUBIN,TOTAL 0.7 mg/dL (0.2-1.3); BLOOD UREA NITROGEN 9 mg/dL (7-21); CALCIUM 8.3 mg/dL (8.4-10.5); CARBON DIOXIDE 24 mmol/L (21-33); CHLORIDE 99 mmol/L (95-110); GFR AFRICAN-AMERICAN > 60; GLUCOSE,RANDOM 118 mg/dL (70-110); POTASSIUM 3.8 mmol/L (3.6-5.0); SODIUM 131 mmol/L (132-148); TOTAL PROTEIN 6.4 g/dL (5.8-8.3)
[2016-05-30 07:27] LABS: HEMATOCRIT 33.2 % (36.0-48.0); MEAN CELL VOLUME 88.8 fL (80.0-105.0); MEAN CORPUSCULAR HEMOGLOBIN 30.7 pg (25.0-35.0); MEAN CORPUSCULAR HGB CONC 34.6 g/dl (31.0-37.0); MEAN PLATELET VOLUME 9.1 fl (7.0-11.0); RED CELL DISTRIBUTION WIDTH 13.4 % (11.5-14.5); WHITE BLOOD COUNT 8.2 10^3/ul (4.5-11.0)
[2016-05-30] MEDS: Levothyroxine 50 MCG TAB PO SCH (07:44)
[2016-05-30] MEDS: Enoxaparin 40 mg Syringe SC SCH (09:43)
[2016-05-30] MEDS: Dextrose 5%/0.45% NS 1,000 ML IV SCH (09:44)
--- NOTE | 2016-05-30 11:45 | PQF GENQUE ---
This form is a permanent part of the medical record Clarification of your documentation is requested to better reflect the severity of illness and intensity of treatment of your patient. Indicators present Presents w// AMS, Urine culture + Klebsiella Pneumoniae. On IV Levaquin. Please document if UTI is possible reason for AMS on admission [] Specify: [] [] Specify: [] [] Specify: [] [] Specify: [] Location in the medical record that reflects the above clinical findings: [x Urine culture] Treatment Provided: []IV Levaquin PHYSICIAN'S RESPONSE Based on your medical judgment of the clinical indicators outlined above please clarify the following: [] Practitioner response [] If unable to determine, please check the box, sign and date. AMS is likely secondary to UTI as CT/MRI was negative and Ucx was positive. Please refer to note from today. Present On Admission (POA) Indicator: [] Present at the time of admission [] Not present at the time of admission [] Clinically Undetermined In responding to this query, please exercise your independent professional judgment. The fact that a question is asked does not imply that any particular answer is desired or expected. Thank you for your clarification on this documentation. If you have any questions please call:[ ][phone] * Thank you, [ ]Marily Gonzalez RN CDS ballistic expert [facility]
--- NOTE | 2016-05-30 16:02 | CP.PCM.DIS ---
Addendum entered and electronically signed by Jason Nunez DO 05/30/16 16: 15: EEG showed b/l cerebral dysfunction, with NO signs of seizures. Original Note: <Jason Nunez - Last Filed: 05/30/16 15:59> Provider - Provider Date of Admission: 05/28/16 14:18 Attending physician: Esteban Gardiner MD Consults: Neuro - Dr. Monahan Time Spent in preparation of Discharge (in minutes): 45 Diagnosis - Discharge Diagnosis (1) UTI (urinary tract infection) Status: Acute Priority: Low (2) Weakness Status: Chronic Priority: Medium (3) Altered mental status Status: Resolved Priority: Low Hospital Course - Lab Results Lab Results: Most Recent Lab Values WBC 8.2 10^3/ul (4.5-11.0) 05/30/16 07:00 RBC 3.74 10^6/uL (3.5-6.1) 05/30/16 07:00 Hgb 11.5 gm/dL (12.0-16.0) L 05/30/16 07:00 Hct 33.2 % (36.0-48.0) L 05/30/16 07:00 MCV 88.8 fL (80.0-105.0) 05/30/16 07:00 MCH 30.7 pg (25.0-35.0) 05/30/16 07:00 MCHC 34.6 g/dl (31.0-37.0) 05/30/16 07:00 RDW 13.4 % (11.5-14.5) 05/30/16 07:00 Plt Count 231 10^3/uL (120.0-450.0) 05/30/16 07:00 MPV 9.1 fl (7.0-11.0) 05/30/16 07:00 Gran % 79.1 % (50.0-68.0) H 05/28/16 12:00 Lymph % (Auto) 16.4 % (22.0-35.0) L 05/28/16 12:00 Reagan % (Auto) 4.1 % (1.0-6.0) 05/28/16 12:00 Eos % (Auto) 0.2 % (1.5-5.0) L 05/28/16 12:00 Baso % (Auto) 0.2 % (0.0-3.0) 05/28/16 12:00 Gran # 8.65 (1.4-6.5) H 05/28/16 12:00 Lymph # 1.8 (1.2-3.4) 05/28/16 12:00 Reagan # 0.5 (0.1-0.6) 05/28/16 12:00 Eos # 0.0 (0.0-0.7) 05/28/16 12:00 Baso # 0.02 K/mm3 (0.0-2.0) 05/28/16 12:00 PT 11.2 Seconds (9.9-11.8) 05/28/16 12:00 INR 1.04 (0.93-1.08) 05/28/16 12:00 APTT 24.5 Seconds (23.7-30.8) 05/28/16 12:00 pO2 201 mm/Hg (30-55) H 05/28/16 15:30 VBG pH 7.41 (7.32-7.43) 05/28/16 15:30 VBG pCO2 35.0 (40-60) L 05/28/16 15:30 VBG HCO3 22.2 mmol/l (21-28) 05/28/16 15:30 VBG Total CO2 24.2 mmol.L (22-28) 05/28/16 12:30 VBG O2 Sat (Calc) 99.7 % (40-65) H 05/28/16 15:30 VBG Base Excess -1.9 mmol/L (0.0-2.0) L 05/28/16 15:30 VBG Potassium 4.1 mmol/L (3.6-5.2) 05/28/16 12:30 Sodium 134.0 mmol/L (132-148) 05/28/16 12:30 Chloride 101.0 mmol/L (98-107) 05/28/16 12:30 Glucose 154 mg/dl (65-105) H 05/28/16 12:30 Lactate 2.3 mmol/L (0.7-2.1) H 05/28/16 12:30 FiO2 21.0 % 05/28/16 12:30 Sodium 131 mmol/L (132-148) L 05/30/16 07:00 Potassium 3.8 mmol/L (3.6-5.0) 05/30/16 07:00 Chloride 99 mmol/L (95-110) 05/30/16 07:00 Carbon Dioxide 24 mmol/L (21-33) 05/30/16 07:00 Anion Gap 12 (10-20) 05/30/16 07:00 BUN 9 mg/dL (7-21) 05/30/16 07:00 Creatinine 0.5 mg/dL (0.5-1.4) 05/30/16 07:00 Est GFR ( Amer) > 60 05/30/16 07:00 Est GFR (Non-Af Amer) > 60 05/30/16 07:00 POC Glucose (mg/dL) 165 mg/dL (65-110) H 05/30/16 11:34 Random Glucose 118 mg/dL (70-110) H 05/30/16 07:00 Calcium 8.3 mg/dL (8.4-10.5) L 05/30/16 07:00 Total Bilirubin 0.7 mg/dL (0.2-1.3) 05/30/16 07:00 AST 31 U/L (15-39) 05/30/16 07:00 ALT 18 U/L (7-56) 05/30/16 07:00 Alkaline Phosphatase 76 U/L (38-133) 05/30/16 07:00 Lactate Dehydrogenase 562 U/L (333-699) 05/28/16 12:00 Total Creatine Kinase 55 U/L (35-230) 05/28/16 12:00 Troponin I 0.01 ng/mL 05/28/16 12:00 NT-Pro-B Natriuret Pep 204 pg/mL (0-450) 05/28/16 12:00 Total Protein 6.4 g/dL (5.8-8.3) 05/30/16 07:00 Albumin 3.5 g/dL (3.0-4.8) 05/30/16 07:00 Globulin 2.9 gm/dL 05/30/16 07:00 Albumin/Globulin Ratio 1.2 (1.1-1.8) 05/30/16 07:00 Triglycerides 68 mg/dL (35-160) 05/29/16 10:50 Cholesterol 222 mg/dL (130-200) H 05/29/16 10:50 LDL Cholesterol Direct 143 mg/dL (0-129) H 05/29/16 10:50 HDL Cholesterol 66 mg/dL (29-60) H 05/29/16 10:50 Procalcitonin < 0.05 NG/ML (0.19-0.49) L 05/28/16 17:00 TSH 3rd Generation 3.76 mIU/mL (0.46-4.68) 05/28/16 16:30 Venous Blood Potassium 4.1 mmol/L (3.6-5.2) 05/28/16 12:30 Urine Color Yellow (YELLOW) 05/28/16 12:30 Urine Appearance Sl cloudy (CLEAR) 05/28/16 12:30 Urine pH 6.0 (4.7-8.0) 05/28/16 12:30 Ur Specific [place] 1.025 (1.005-1.035) 05/28/16 12:30 Urine Protein Trace mg/dL (<30 mg/dL) H 05/28/16 12:30 Urine Glucose (UA) Negative mg/dL (NEGATIVE) 05/28/16 12:30 Urine Ketones 15 mg/dL (NEGATIVE) H 05/28/16 12:30 Urine Blood Trace-intact (NEGATIVE) H 05/28/16 12:30 Urine Nitrate Negative (NEGATIVE) 05/28/16 12:30 Urine Bilirubin Negative (NEGATIVE) 05/28/16 12:30 Urine Urobilinogen 0.2 E.U./dL (<1 E.U./dL) 05/28/16 12:30 Ur Leukocyte Esterase Negative Ramon/uL (NEGATIVE) 05/28/16 12:30 Urine RBC 0 - 2 /hpf (0-2) 05/28/16 12:30 Urine WBC 10 - 15 /hpf (0-6) 05/28/16 12:30 Ur Epithelial Cells 0 - 2 /hpf (0-5) 05/28/16 12:30 Urine Bacteria Mod (NEG) 05/28/16 12:30 - Hospital Course Hospital Course: 85 y/o F with PMH hypothyroidism, dyslipidemia, osteoarthritis, and hx of compression fracture presents to the ED for AMS for the past day. Pt is accompanied by her son who provides medical hx. Son states that last night his mother was talking normally and not complaining of anything. Pt woke up this morning confused and nonverbal. Pt also has a caretaker resort, who stays with her . [employer] said that this morning, pt had bladder and bowel incontinence, which is very unusual for the patient. Pt was also noted to throw up several times. Emesis was nonbloody and nonbilious, containing food particles. Pt has no prior episodes of altered mental status. Pt was admitted for AMS. Pt was initially placed on abx for aspiration pneumonia. Head CT was unremarkable, but may have shown possible normal pressure hydrocephalus. Brain MRI was normal. EEG was abnormal and showed possible b/l cerebral dysfunction, but signs of seizures. Echocardigram with EF within normal limits (See report). 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 Pt was found to have an unremarkable UA, but urine culture came back positive for klebsiella pneumoniae. Pt will be sent home on 3 days of levaquin as well as taking baby aspirin indefinitely. Discharge Exam - Head Exam Head Exam: ATRAUMATIC, NORMAL INSPECTION - ENT Exam ENT Exam: Mucous Membranes Moist, Normal Exam - Respiratory Exam Respiratory Exam: NORMAL BREATHING PATTERN, UNREMARKABLE. absent: Rhonchi, Wheezes - Cardiovascular Exam Cardiovascular Exam: RRR, +S1, +S2 - GI/Abdominal Exam GI & Abdominal Exam: Normal Bowel Sounds, Soft. absent: Tenderness - Extremities Exam Extremities exam: normal inspection - Neurological Exam Neurological exam: Alert, Oriented x3 - Psychiatric Exam Psychiatric exam: Normal Affect, Normal Mood - Skin Skin Exam: Intact, Normal Color, Warm Discharge Plan - Discharge Medications Prescriptions: RX: Aspirin [Adult Low Dose Aspirin EC] 81 mg PO DAILY #14 tablet. RX: Ezetimibe 10 mg PO DAILY #14 tablet RX: Levofloxacin [Levaquin] 500 mg PO DAILY #3 tablet RX: Levothyroxine [Synthroid] 50 mcg PO 0600 #14 tab - Follow Up Plan Condition: GOOD Disposition: HOME/ ROUTINE Instructions: Pneumococcal Vaccine for Adults (DC), Urinary Tract Infection in Women (DC), Influenza Vaccine (DC), Altered Mental Status (GEN), Urinary Tract Infection in Men (DC), Dysuria (GEN) Additional Instructions: Continue Levaquin for next 3 days. Continue all home medications. Follow up with PMD within 1 week. Return to hospital if symptoms return or worsen. <Esteban Gardiner - Last Filed: 05/30/16 16:25> Provider - Provider Date of Admission: 05/28/16 14:18 Attending physician: Esteban Gardiner [facility] Course - Lab Results Lab Results: Most Recent Lab Values WBC 8.2 10^3/ul (4.5-11.0) 05/30/16 07:00 RBC 3.74 10^6/uL (3.5-6.1) 05/30/16 07:00 Hgb 11.5 gm/dL (12.0-16.0) L 05/30/16 07:00 Hct 33.2 % (36.0-48.0) L 05/30/16 07:00 MCV 88.8 fL (80.0-105.0) 05/30/16 07:00 MCH 30.7 pg (25.0-35.0) 05/30/16 07:00 MCHC 34.6 g/dl (31.0-37.0) 05/30/16 07:00 RDW 13.4 % (11.5-14.5) 05/30/16 07:00 Plt Count 231 10^3/uL (120.0-450.0) 05/30/16 07:00 MPV 9.1 fl (7.0-11.0) 05/30/16 07:00 Gran % 79.1 % (50.0-68.0) H 05/28/16 12:00 Lymph % (Auto) 16.4 % (22.0-35.0) L 05/28/16 12:00 Reagan % (Auto) 4.1 % (1.0-6.0) 05/28/16 12:00 Eos % (Auto) 0.2 % (1.5-5.0) L 05/28/16 12:00 Baso % (Auto) 0.2 % (0.0-3.0) 05/28/16 12:00 Gran # 8.65 (1.4-6.5) H 05/28/16 12:00 Lymph # 1.8 (1.2-3.4) 05/28/16 12:00 Reagan # 0.5 (0.1-0.6) 05/28/16 12:00 Eos # 0.0 (0.0-0.7) 05/28/16 12:00 Baso # 0.02 K/mm3 (0.0-2.0) 05/28/16 12:00 PT 11.2 Seconds (9.9-11.8) 05/28/16 12:00 INR 1.04 (0.93-1.08) 05/28/16 12:00 APTT 24.5 Seconds (23.7-30.8) 05/28/16 12:00 pO2 201 mm/Hg (30-55) H 05/28/16 15:30 VBG pH 7.41 (7.32-7.43) 05/28/16 15:30 VBG pCO2 35.0 (40-60) L 05/28/16 15:30 VBG HCO3 22.2 mmol/l (21-28) 05/28/16 15:30 VBG Total CO2 24.2 mmol.L (22-28) 05/28/16 12:30 VBG O2 Sat (Calc) 99.7 % (40-65) H 05/28/16 15:30 VBG Base Excess -1.9 mmol/L (0.0-2.0) L 05/28/16 15:30 VBG Potassium 4.1 mmol/L (3.6-5.2) 05/28/16 12:30 Sodium 134.0 mmol/L (132-148) 05/28/16 12:30 Chloride 101.0 mmol/L (98-107) 05/28/16 12:30 Glucose 154 mg/dl (65-105) H 05/28/16 12:30 Lactate 2.3 mmol/L (0.7-2.1) H 05/28/16 12:30 FiO2 21.0 % 05/28/16 12:30 Sodium 131 mmol/L (132-148) L 05/30/16 07:00 Potassium 3.8 mmol/L (3.6-5.0) 05/30/16 07:00 Chloride 99 mmol/L (95-110) 05/30/16 07:00 Carbon Dioxide 24 mmol/L (21-33) 05/30/16 07:00 Anion Gap 12 (10-20) 05/30/16 07:00 BUN 9 mg/dL (7-21) 05/30/16 07:00 Creatinine 0.5 mg/dL (0.5-1.4) 05/30/16 07:00 Est GFR ( Amer) > 60 05/30/16 07:00 Est GFR (Non-Af Amer) > 60 05/30/16 07:00 POC Glucose (mg/dL) 165 mg/dL (65-110) H 05/30/16 11:34 Random Glucose 118 mg/dL (70-110) H 05/30/16 07:00 Calcium 8.3 mg/dL (8.4-10.5) L 05/30/16 07:00 Total Bilirubin 0.7 mg/dL (0.2-1.3) 05/30/16 07:00 AST 31 U/L (15-39) 05/30/16 07:00 ALT 18 U/L (7-56) 05/30/16 07:00 Alkaline Phosphatase 76 U/L (38-133) 05/30/16 07:00 Lactate Dehydrogenase 562 U/L (333-699) 05/28/16 12:00 Total Creatine Kinase 55 U/L (35-230) 05/28/16 12:00 Troponin I 0.01 ng/mL 05/28/16 12:00 NT-Pro-B Natriuret Pep 204 pg/mL (0-450) 05/28/16 12:00 Total Protein 6.4 g/dL (5.8-8.3) 05/30/16 07:00 Albumin 3.5 g/dL (3.0-4.8) 05/30/16 07:00 Globulin 2.9 gm/dL 05/30/16 07:00 Albumin/Globulin Ratio 1.2 (1.1-1.8) 05/30/16 07:00 Triglycerides 68 mg/dL (35-160) 05/29/16 10:50 Cholesterol 222 mg/dL (130-200) H 05/29/16 10:50 LDL Cholesterol Direct 143 mg/dL (0-129) H 05/29/16 10:50 HDL Cholesterol 66 mg/dL (29-60) H 05/29/16 10:50 Procalcitonin < 0.05 NG/ML (0.19-0.49) L 05/28/16 17:00 TSH 3rd Generation 3.76 mIU/mL (0.46-4.68) 05/28/16 16:30 Venous Blood Potassium 4.1 mmol/L (3.6-5.2) 05/28/16 12:30 Urine Color Yellow (YELLOW) 05/28/16 12:30 Urine Appearance Sl cloudy (CLEAR) 05/28/16 12:30 Urine pH 6.0 (4.7-8.0) 05/28/16 12:30 Ur Specific [place] 1.025 (1.005-1.035) 05/28/16 12:30 Urine Protein Trace mg/dL (<30 mg/dL) H 05/28/16 12:30 Urine Glucose (UA) Negative mg/dL (NEGATIVE) 05/28/16 12:30 Urine Ketones 15 mg/dL (NEGATIVE) H 05/28/16 12:30 Urine Blood Trace-intact (NEGATIVE) H 05/28/16 12:30 Urine Nitrate Negative (NEGATIVE) 05/28/16 12:30 Urine Bilirubin Negative (NEGATIVE) 05/28/16 12:30 Urine Urobilinogen 0.2 E.U./dL (<1 E.U./dL) 05/28/16 12:30 Ur Leukocyte Esterase Negative Ramon/uL (NEGATIVE) 05/28/16 12:30 Urine RBC 0 - 2 /hpf (0-2) 05/28/16 12:30 Urine WBC 10 - 15 /hpf (0-6) 05/28/16 12:30 Ur Epithelial Cells 0 - 2 /hpf (0-5) 05/28/16 12:30 Urine Bacteria Mod (NEG) 05/28/16 12:30 Attending/Attestation - Attestation I have personally seen and examined this patient.: Yes I have fully participated in the care of the patient.: Yes I have reviewed all pertinent clinical information, including history, physical exam and plan: Yes Notes (Text): 05/30/16 16:18 85 year old female with past medical history of hypothyroidism, dyslipidemia and arthritis who presented with altered mental status. CT/MRI brain were negative. EEG was reviewed as above. She has mild hyponatremia which improved and is stable. She was started on iv fluids and antibiotics. Ucx was positive. Likely AMS was secondary to UTI. This morning she is awake and alert at her baseline. She was seen by neurology as well. Patient will be discharged home today to follow up with her pmd. Continue with home medications for hypothyroidism and dyslipidemia. Continue with antibiotics. Esteban Gardiner MD Hospitalist.
--- NOTE | 2016-05-30 17:00 | PN ---
DATE: 05/30/2016 CHIEF COMPLAINT: Follow up altered mental status. SUBJECTIVE: The patient seen and examined at bedside. EEG showed bilateral cerebral dysfunction. N o evidence of any epileptiform activity. Her abdomen pelvis CAT scan showed large right paraesophage al hernia. Her urine culture came back for Klebsiella ____ and is going to be sent home on Levaquin, which is likely responsible for her altered mental status. Her features were not consistent with a TIA. Her MRI of the brain showed no acute intracranial abnormality. She should be on aspirin and Li pitor for stroke prevention. PAST MEDICAL HISTORY: Hypothyroidism, dyslipidemia, osteoarthritis, history of compression fractures . REVIEW OF SYSTEMS: A 14-point review of systems is negative except for the HPI. ALLERGIES: No known drug allergies. FAMILY HISTORY: Noncontributory. SOCIAL HISTORY: No illicit drug use, smoking, or ETOH abuse. MEDICATIONS: Reviewed via nurse's reconciliation sheet. PHYSICAL EXAMINATION: VITAL SIGNS: Temperature of 99, pulse rate of 87, blood pressure 166/93, respiratory rate of 20, oxy gen saturation 93% via room air. GENERAL: The patient is sitting up in bed in no acute distress. HEENT: Atraumatic, normocephalic. PERRLA. Extraocular muscles intact. NECK: Supple, no JVD, no adenopathy noted. LUNGS: Clear to auscultation. No adventitious sounds. HEART: S1, S2, normal rate and rhythm. No murmurs, rubs, or gallops. ABDOMEN: Soft, nontender, nondistended. Bowel sounds are present. EXTREMITIES: No clubbing, no cyanosis. Peripheral pulses 2+ felt bilaterally. NEUROLOGIC: The patient is alert, orientated to person and place, not to month or year. Recall afte r 5 minutes is 0/3. Poor attention span. Slow thought process. Cranial nerves II-XII intact. MOTOR: Slight increased tone throughout. Moves all extremities equally. Toes downgoing bilaterally . SENSORY: Light touch, pinprick intact bilaterally with decreased vibration of the toes. COORDINATION: [id number] intact. Gait is deferred for now. ASSESSMENT AND PLAN: This is an 85-year-old woman with past medical history of hypothyroidism, dysli pidemia, osteoarthritis, history of compression fractures, who presented with altered mental status. Altered mental status was likely secondary to her urinary tract infection which was positive for Kle bsiella and is going to be currently on Levaquin for the next 3 days. Her MRI of the brain showed no acute intracranial abnormalities. Likely, her altered mental status was transient confusional state superimposed on underlying urinary tract infection with underlying dehydration and hypertensive urge ncy. At this time, continue with current present medical management and is clinically stable from my standpoint at this time. Carloz Monahan MD cc: [id number] TT: 05/30/2016 17:00:17 Confirmation # [id number] Dictation # [id number]
[2016-05-30 18:34] VITALS: BP 130/64; PULSE 65; RESP 18; TEMP 97.8; O2SAT 97
== END 2016-05-30 22:41 | disposition home or self-care (01) | DRG 690 ==
LOC: ED 11:42 → ERH 14:18 → 2RSO 18:38 → 5RSO 05-29 13:49 → UNDODISIN 05-30 13:52
PROVIDERS: ADMIT Internal Medicine; ATTEND Internal Medicine
DX: N39.0 Urinary tract infection, site not specified (principal); B96.1 Klebsiella pneumoniae [K. pneumoniae] as the cause of diseases classified elsewhere; E87.1 Hypo-osmolality and hyponatremia; E86.0 Dehydration; I16.0 Hypertensive urgency; E03.9 Hypothyroidism, unspecified; E78.5 Hyperlipidemia, unspecified; M19.90 Unspecified osteoarthritis, unspecified site; K44.9 Diaphragmatic hernia without obstruction or gangrene; Z66 Do not resuscitate

== ENCOUNTER 2016-06-04 00:48 | Emergency (ER) | payer MEDICARE, BC ==
[2016-06-04 01:07] VITALS: TEMP 99; BMI 26.1
--- NOTE | 2016-06-04 01:07 | ED PDOC ---
Arrival/HPI - General Time Seen by Provider: 06/04/16 00:53 Historian: Patient, Caregiver - History of Present Illness Narrative History of Present Illness (Text): 06/04/16 01:07 Helen Miller is an 85 year old female, whose past medical history includes whose past medical history includes hypertension, hypothyroidism, dyslipidemia, osteoarthritis, and compression fracture, who presents to the ED brought in by EMS accompanied by movie projectionist complaining of high blood pressure. Digital Ad Trafficker states patient was complaining of neck pain while she was changing the patient' s diaper earlier tonight. Digital Ad Trafficker took patient's blood pressure and noted it to be elevated at 180 systolic. Patient is awake, alert, and oriented x3 and reports she currently feels fine. Patient denies any fever, chills, chest pain, shortness of breath, nausea, vomiting, diarrhea, urinary symptoms, back pain, headache, dizziness, or any other complaints. PMD: Dr. Jose Lin Time/Duration: Other (tonight) Symptom Onset: Gradual Symptom Course: Unchanged Activities at Onset: Rest, Light Context: Home Past Medical History - Provider Review Nursing Documentation Reviewed: Yes - Tetanus Immunization Tetanus Immunization: Unknown - Cardiac Hx Cardiac Disorders: Yes Hx Hypertension: Yes - Pulmonary Hx Respiratory Disorders: No - Neurological Hx Neurological Disorder: Yes Hx Dementia: Yes - HEENT Hx HEENT Disorder: No - Renal Hx Renal Disorder: No - Endocrine/Metabolic Hx Endocrine Disorders: Yes Hx Hypothyroidism: Yes - Hematological/Oncological Hx Blood Disorders: No - Integumentary Hx Dermatological Disorder: No - Musculoskeletal/Rheumatological Hx Musculoskeletal Disorders: Yes Hx Falls: Yes Hx Osteoporosis: Yes - Gastrointestinal Hx Gastrointestinal Disorders: Yes Hx Diarrhea: Yes (CHRONIC) - Genitourinary/Gynecological Hx Genitourinary Disorders: Yes Hx Urinary Tract Infection: Yes - Psychiatric Hx Psychophysiologic Disorder: Yes Hx Depression: Yes Hx Emotional Abuse: No Hx Physical Abuse: No Hx Substance Use: No - Surgical History Hx Appendectomy: Yes - Anesthesia Hx Anesthesia: Yes - Suicidal Assessment Feels Threatened In Home Enviroment: No Family/Social History - Physician Review Nursing Documentation Reviewed: Yes Family/Social History: No Known Family HX Smoking Status: Never Smoked Hx Alcohol Use: No Hx Substance Use: No Hx Substance Use Treatment: No Allergies/Home Meds Allergies/Adverse Reactions: Allergies No Known Allergies Allergy (Verified 06/04/16 01:07) Home Medications: Home Meds Medication Instructions Recorded Confirmed Acetyl/Methyl-B12/Lmefolate Ca 1 tab PO DAILY 05/28/16 05/28/16 [l-Methyl-Mc [place]ac Tablet] Cholecalciferol (Vitamin D3) 1 tab PO DAILY 05/28/16 05/28/16 [Vitamin D3] Levothyroxine [Synthroid] 1.5 tab PO DAILY 05/28/16 05/28/16 Zolpidem [Ambien] 10 mg PO HS 05/28/16 05/28/16 Review of Systems - Physician Review All systems were reviewed & negative as marked: Yes - Review of Systems Constitutional: Normal. absent: Fevers Eyes: Normal ENT: Normal Respiratory: Normal. absent: SOB, Cough Cardiovascular: Other (+high blood pressure). absent: Chest Pain Gastrointestinal: Normal. absent: Abdominal Pain, Diarrhea, Nausea, Vomiting Genitourinary Female: Normal. absent: Dysuria, Frequency, Hematuria, Urine Output Changes Musculoskeletal: Neck Pain. absent: Back Pain Skin: Normal. absent: Rash Neurological: Normal. absent: Headache, Dizziness Endocrine: Normal Hemo/Lymphatic: Normal Psychiatric: Normal Physical Exam Vital Signs Reviewed: Yes Vital Signs Temp Pulse Pulse Resp BP BP Pulse Ox 06/04/16 02:39 76 22 144/71 95 06/04/16 01:52 83 16 169/89 H 98 06/04/16 01:45 83 173/112 H 06/04/16 01:10 83 173/112 H 06/04/16 01:07 76 16 99 06/04/16 01:06 99.0 F 79 16 173/112 H 94 L Temperature: Afebrile Blood Pressure: Hypertensive Pulse: Regular Respiratory Rate: Normal Appearance: Positive for: Well-Appearing, Non-Toxic, Comfortable Pain Distress: None Mental Status: Positive for: Alert and Oriented X 3 - Systems Exam Head: Present: Atraumatic, Normocephalic Pupils: Present: PERRL Extroacular Muscles: Present: EOMI Conjunctiva: Present: Normal Mouth: Present: Moist Mucous Membranes Neck: Present: Normal Range of Motion. No: Meningeal Signs, MIDLINE TENDERNESS , Paraspinal Tenderness Respiratory/Chest: Present: Clear to Auscultation, Good Air Exchange. No: Respiratory Distress, Accessory Muscle Use Cardiovascular: Present: Regular Rate and Rhythm, Normal S1, S2. No: Murmurs Abdomen: Present: Normal Bowel Sounds. No: Tenderness, Distention, Peritoneal Signs Back: Present: Normal Inspection Upper Extremity: Present: Normal Inspection. No: Cyanosis, Edema Lower Extremity: Present: Normal Inspection. No: Edema Neurological: Present: GCS=15, CN II-XII Intact, Speech Normal, Motor Func Grossly Intact, Normal Sensory Function, Normal Cerebellar Funct Skin: Present: Warm, Dry, Normal Color. No: Rashes Psychiatric: Present: Alert, Oriented x 3, Normal Insight, Normal Concentration Medical Decision Making ED Course and Treatment: 06/04/16 01:07 Impression: 85 year old female complaining of high blood pressure tonight. Differential Diagnosis include but are not limited to: hypertension Plan: -- EKG -- Chest X-ray -- CT Head w/o contrast -- Labs, cardiac enzymes -- Urinalysis -- Apresoline -- Reassess and disposition Prior Visits: Notes and results from previous visits were reviewed. Progress Notes: Reviewed EKG, NSR at [address]-segment elevations or depressions, no T-wave inversions, normal intervals. 06/04/16 02:42 Reviewed radiology, Chest X-ray shows no active disease. CT Head shows: 1. No evidence for acute intracranial abnormality or displaced calvarial fracture. 2. Additional incidental and/or chronic findings as described 3. Ventricular dilatation is again slightly out of proportion to the sulcal prominence. This raises the question of normal pressure hydrocephalus. Please correlate clinically. 06/04/16 03:15 On re-evaluation, the patient feels better and is in no acute distress. I have discussed the results and plan with the patient, who expresses understanding. Patient in agreement with plan to discharged home. Patient is stable for discharge. Patient was instructed to follow up with physician/clinic in 1-2 days or return if symptoms worsen or new concerning symptoms arise. Re-evaluation Time: 03:15 Reassessment Condition: Re-examined, Improved - Lab Interpretations Lab Results: 06/04/16 01:45 06/04/16 01:45 Lab Results 06/04/16 01:45: WBC 10.3 D, RBC 4.38, Hgb 13.7, Hct 38.8, MCV 88.6, MCH 31.3, MCHC 35.3, RDW 13.5, Plt Count 341, MPV 8.6, Gran % 70.3 H, Lymph % (Auto) 18.1 L, [place] % (Auto) 9.3 H, Eos % (Auto) 2.0, Baso % (Auto) 0.3, Gran # 7.24 H, Lymph # 1.9, [place] # 1.0 H, Eos # 0.2, Baso # 0.03, Sodium 132, Potassium 4.3, Chloride 98, Carbon Dioxide 24, Anion Gap 14, BUN 8, Creatinine 0.5, Est GFR ( Amer) > 60, Est GFR (Non-Af Amer) > 60, Random Glucose 118 H, Calcium 8.6, Magnesium 2.1, Total Bilirubin 0.8, AST 29, ALT 26, Alkaline Phosphatase 103, Lactate Dehydrogenase 561, Total Creatine Kinase 50, Troponin I < 0.01, Total Protein 7.5, Albumin 4.0, Globulin 3.5, Albumin/Globulin Ratio 1.1 I have reviewed the lab results: Yes - RAD Interpretation Narrative RAD Interpretations (Text): Chest X-ray shows no active disease. CT Head shows: Brain: There is moderate prominence of ventricles and sulci, compatible with moderate atrophy. There is mild diminished density of the white matter bilaterally, consistent with mild microangiopathy. There is no evidence of intracranial hemorrhage. No evidence of acute territorial infarction. No edema. Ventricles: See above. Bones/joints: Unremarkable. No acute fracture. Soft tissues: Unremarkable. Sinuses: Unremarkable as visualized. No acute sinusitis. Mastoid air cells: Unremarkable as visualized. No mastoid effusion. Orbits: There are postsurgical changes of left globe. There is no significant change from the prior study. IMPRESSION: 1. No evidence for acute intracranial abnormality or displaced calvarial fracture. 2. Additional incidental and/or chronic findings as described 3. Ventricular dilatation is again slightly out of proportion to the sulcal prominence. This raises the question of normal pressure hydrocephalus. Please correlate clinically. Radiology Orders: 06/04/16 01:08 HEAD W/O CONTRAST [CT] Stat CHEST PORTABLE [RAD] Stat Weight Engineer: ED Physician, Radiologist - EKG Interpretation Interpreted by ED Physician: Yes Type: 12 lead EKG - Medication Orders Current Medication Orders: Discontinued Medications Hydralazine HCl (Apresoline) 10 mg IVP STAT STA Stop: 06/04/16 01:23 Last Admin: 06/04/16 01:45 Dose: 10 MG MAR Pulse and Blood Pressure Document 06/04/16 01:45 [email or web address] (Rec: 06/04/16 01:52 [email or web address] [facility] [id number]) Pulse Pulse Rate (60-90) 83 Blood Pressure Blood Pressure (100/60-150/90) 173/112 IVP Administration Document 06/04/16 01:45 [email or web address] (Rec: 06/04/16 01:52 [email or web address] [facility] [id number]) Charges for Administration # of IVP Administrations 1 - Scribe Statement The provider has reviewed the documentation as recorded by the Srinivas Burrows Provider Attestation: All medical record entries made by the Zarinaibzheng were at my direction and personally dictated by me. I have reviewed the chart and agree that the record accurately reflects my personal performance of the history, physical exam, medical decision making, and the department course for this patient. I have also personally directed, reviewed, and agree with the discharge instructions and disposition. Disposition/Present on Arrival - Present on Arrival Any Indicators Present on Arrival: No History of DVT/PE: No History of Uncontrolled Diabetes: No Urinary Catheter: No History Surgical Site Infection Following: None - Disposition Have Diagnosis and Disposition been Completed?: Yes Diagnosis: Hypertension Disposition: HOME/ ROUTINE Disposition Time: 03:15 Patient Problems: Current Active Problems Problem Status Diagnosed Hypertension Acute Condition: GOOD Discharge Instructions (ExitCare): Hypertension (DC) Prescriptions: Lisinopril [Prinivil] 10 mg PO DAILY #14 tablet Lisinopril [Prinivil] 10 mg PO DAILY #14 tablet Referrals: Beto Lin MD [Primary Care Provider] - Follow up with primary
[2016-06-04 01:52] LABS: ADD MANUAL DIFF? NO
[2016-06-04 02:04] LABS: BASO # 0.03 K/mm3 (0.0-2.0); BASO % 0.3 % (0.0-3.0); EOS # 0.2 (0.0-0.7); GRAN # 7.24 (1.4-6.5); GRAN % 70.3 % (50.0-68.0); HEMATOCRIT 38.8 % (36.0-48.0); LYMPH # 1.9 (1.2-3.4); LYMPH % 18.1 % (22.0-35.0); MEAN CELL VOLUME 88.6 fL (80.0-105.0); MEAN CORPUSCULAR HEMOGLOBIN 31.3 pg (25.0-35.0); MEAN CORPUSCULAR HGB CONC 35.3 g/dl (31.0-37.0); MEAN PLATELET VOLUME 8.6 fl (7.0-11.0); MONO % 9.3 % (1.0-6.0); PLATELET COUNT 341 10^3/uL (120.0-450.0); RED CELL DISTRIBUTION WIDTH 13.5 % (11.5-14.5); WHITE BLOOD COUNT 10.3 10^3/ul (4.5-11.0)
[2016-06-04 02:06] LABS: ALB/GLOB RATIO 1.1 (1.1-1.8); ALKALINE PHOSPHATASE 103 U/L (38-133); ALT/SGPT 26 U/L (7-56); AST/SGOT 29 U/L (15-39); BILIRUBIN,TOTAL 0.8 mg/dL (0.2-1.3); BLOOD UREA NITROGEN 8 mg/dL (7-21); CALCIUM 8.6 mg/dL (8.4-10.5); CARBON DIOXIDE 24 mmol/L (21-33); CHLORIDE 98 mmol/L (98-107); GFR AFRICAN-AMERICAN > 60; GLUCOSE,RANDOM 118 mg/dL (70-110); MAGNESIUM 2.1 mg/dL (1.7-2.2); POTASSIUM 4.3 mmol/L (3.6-5.0); SODIUM 132 mmol/L (132-148); TOTAL PROTEIN 7.5 g/dL (5.8-8.3)
[2016-06-04 02:22] LABS: TROPONIN I < 0.01 ng/mL
[2016-06-04 03:59] VITALS: BP 145/75; PULSE 85; RESP 16; O2SAT 94
--- NOTE | 2016-06-04 08:40 | CARD ---
APPROVED REPORT EKG Measurement Heart [id number] <Conclusion> Normal sinus rhythm Normal ECG
--- NOTE | 2016-06-04 09:27 | RAD ---
HISTORY: htn COMPARISON: 05/28/2016 FINDINGS: LUNGS: Bilateral interstitial changes; cannot exclude acute infiltrate particularly at the left base. PLEURA: No significant pleural effusion identified, no pneumothorax apparent. CARDIOVASCULAR: Cardiomegaly. OSSEOUS STRUCTURES: No significant abnormalities. VISUALIZED UPPER ABDOMEN: Normal. OTHER FINDINGS: None. IMPRESSION: Bilateral interstitial changes, cannot exclude acute infiltrate at the left base.
--- NOTE | 2016-06-04 09:45 | CT ---
PROCEDURE: CT HEAD WITHOUT CONTRAST. HISTORY: htn COMPARISON: None available. TECHNIQUE: Axial computed tomography images were obtained through the head/brain without intravenous contrast. This CT exam was performed using one or more of the following dose reduction techniques: Automated exposure control, adjustment of the mA and/or kV according to patient size, and/or use of iterative reconstruction technique. Radiation dose: Total exam DLP = 768 mGy-cm. FINDINGS: HEMORRHAGE: No intracranial hemorrhage. BRAIN: No mass effect or edema. Chronic periventricular white matter ischemic disease. VENTRICLES: Unremarkable. No hydrocephalus. CALVARIUM: Unremarkable. PARANASAL SINUSES: Unremarkable as visualized. No significant inflammatory changes. MASTOID AIR CELLS: Unremarkable as visualized. No inflammatory changes. OTHER FINDINGS: None. IMPRESSION: No hemorrhage.
== END 2016-06-04 04:00 | disposition home or self-care (01) ==
LOC: ED 00:48
DX: I10 Essential (primary) hypertension (principal); E78.5 Hyperlipidemia, unspecified; M19.90 Unspecified osteoarthritis, unspecified site; E03.9 Hypothyroidism, unspecified
CPT/HCPCS: 70450; 71010; 80053; 82550; 83615; 83735; 84484; 85025; 93005; 96374; 99284; J0360

== ENCOUNTER 2016-12-11 11:37 | Emergency (ER) | payer MEDICARE, BC ==
[2016-12-11 11:40] VITALS: BMI 22.6
[2016-12-11 11:48] VITALS: TEMP 97.9
[2016-12-11] MEDS ORDERED: Morphine 2 mg/ml ISec IVP STA (12:00)
--- NOTE | 2016-12-11 12:05 | ED PDOC ---
Arrival/HPI - General Historian: Patient, Caregiver - History of Present Illness Time/Duration: 24 hours Symptom Onset: Sudden Symptom Course: Unchanged Quality: Throbbing Severity Level: Mild, Moderate Context: Home - General Chief Complaint: Abdominal Pain Time Seen by Provider: 12/11/16 11:37 - History of Present Illness Narrative History of Present Illness (Text): 12/11/16 11:59 History as per pt & caregiver 86F w/PMH sig for Hypothyroidism, HLD, HTN, osteoarthritis, hx compression fxr evaluated for Right sided abdominal pain x 1 day. Patient's caregiver reports that yesterday, when she was transferring her, pt had abdominal pain over right side. Patient was given Advil with resolution of pain. Pt reports pain only upon palpation, non radiating, moderate, sharp. Patient's caregiver reports remote history (1.5 mos ago) of slipping to the floor with caregiver- was evaluated by EMS. Admits to constipation (chronic), slight cough. Denies N/V/F /C, SOB, CP, ab pain, recent illness, diarrhea, dysuria, hematuria, hematochezia , other complaints. PMH: Hypothyroidism, HLD, HTN, osteoarthritis, hx compression fxr PSH: Denies All: NKDA SH: Denies tobacco, ETOH, or illicit drug use/history; has a caregiver, is immobile PMD: [place] (Kalie Michael) Modifying Factors (Text): 12/11/16 12:06 touch, pressure (Kalie Michael) Past Medical History - Provider Review Nursing Documentation Reviewed: Yes - Tetanus Immunization Tetanus Immunization: Unknown - Cardiac Hx Cardiac Disorders: Yes Hx Hypertension: Yes - Pulmonary Hx Respiratory Disorders: No - Neurological Hx Neurological Disorder: Yes Hx Dementia: Yes - HEENT Hx HEENT Disorder: No - Renal Hx Renal Disorder: No - Endocrine/Metabolic Hx Endocrine Disorders: Yes Hx Hypothyroidism: Yes - Hematological/Oncological Hx Blood Disorders: No - Integumentary Hx Dermatological Disorder: No - Musculoskeletal/Rheumatological Hx Musculoskeletal Disorders: Yes Hx Falls: Yes Hx Osteoporosis: Yes - Gastrointestinal Hx Gastrointestinal Disorders: Yes Hx Diarrhea: Yes (CHRONIC) - Genitourinary/Gynecological Hx Genitourinary Disorders: Yes Hx Urinary Tract Infection: Yes - Psychiatric Hx Psychophysiologic Disorder: Yes Hx Depression: Yes Hx Emotional Abuse: No Hx Physical Abuse: No Hx Substance Use: No - Surgical History Hx Appendectomy: Yes - Anesthesia Hx Anesthesia: Yes - Suicidal Assessment Feels Threatened In Home Enviroment: No Family/Social History - Physician Review Nursing Documentation Reviewed: Yes Family/Social History: No Known Family HX Smoking Status: Never Smoked Hx Alcohol Use: No Hx Substance Use: No Hx Substance Use Treatment: No Allergies/Home Meds Allergies/Adverse Reactions: Allergies No Known Allergies Allergy (Verified 06/04/16 01:07) Home Medications: Home Meds Medication Instructions Recorded Confirmed Acetylcyst/Huhhxxp18/Levomefol 1 tab PO DAILY 05/28/16 12/11/16 [l-Methyl-Mc Nac Tablet] Cholecalciferol (Vitamin D3) 1 tab PO DAILY 05/28/16 12/11/16 [Vitamin D3] Zolpidem [Ambien] 10 mg PO HS 05/28/16 12/11/16 Review of Systems - Physician Review All systems were reviewed & negative as marked: Yes - Review of Systems Constitutional: Normal. absent: Fatigue, Fevers Eyes: Normal. absent: Vision Changes ENT: Normal. absent: Sore Throat Respiratory: Cough Cardiovascular: Normal. absent: Chest Pain, Palpitations Gastrointestinal: Abdominal Pain, Constipation. absent: Diarrhea, Nausea, Vomiting, Appetite Changes, Hematochezia, Hematemesis Genitourinary Female: Normal. absent: Dysuria, Frequency, Hematuria Musculoskeletal: Normal. absent: Back Pain Skin: Normal. absent: Rash Neurological: Normal. absent: Headache Physical Exam Vital Signs Reviewed: Yes Temperature: Afebrile Blood Pressure: Hypertensive Pulse: Regular Respiratory Rate: Normal Appearance: Positive for: Well-Appearing, Non-Toxic, Comfortable Pain Distress: Mild Mental Status: Positive for: Alert and Oriented X 3 - Systems Exam Head: Present: Atraumatic, Normocephalic Extroacular Muscles: Present: EOMI Conjunctiva: Present: Normal Mouth: Present: Moist Mucous Membranes Nose (External): Present: Atraumatic Neck: Present: Normal Range of Motion Respiratory/Chest: Present: Clear to Auscultation, Good Air Exchange. No: Respiratory Distress, Accessory Muscle Use Cardiovascular: Present: Regular Rate and Rhythm, Normal S1, S2. No: Murmurs Abdomen: Present: Tenderness (over right upper and lower quadrant), Normal Bowel Sounds. No: Distention, Peritoneal Signs, Guarding, Scars Upper Extremity: Present: Normal Inspection. No: Cyanosis, Edema Lower Extremity: Present: Normal Inspection. No: Edema Neurological: Present: GCS=15, CN II-XII Intact, Speech Normal Skin: Present: Warm, Dry, Normal Color. No: Rashes Psychiatric: Present: Alert, Oriented x 3, Normal Insight, Normal Concentration Vital Signs Temp Pulse Resp BP Pulse Ox 12/11/16 15:11 81 18 140/55 L 95 12/11/16 13:58 75 14 152/71 H 94 L 12/11/16 11:43 97.9 F 85 18 160/99 H 95 Medical Decision Making ED Course and Treatment: 12/11/16 12:08 Pt seen/evaluated, will order x-rays and labs (Kalie Michael) 12/11/16 19:55 pt seen with resdient. right sided abd pain x few days. ct shows constipation. labs unremarkable. enema give. pt feels improved, observed reading newpaper in nad. advise outpt f/u and return precautions (Doug Shankar) - Lab Interpretations Lab Results: 12/11/16 12:10 12/11/16 12:10 Lab Results 12/11/16 14:40: Urine Color Yellow, Urine Appearance Sl cloudy, Urine pH 6.0, Ur Specific Trevor 1.010, Urine Protein Negative, Urine Glucose (UA) Negative, Urine Ketones Negative, Urine Blood Small H, Urine Nitrate Negative, Urine Bilirubin Negative, Urine Urobilinogen 0.2, Ur Leukocyte Esterase Negative, Urine RBC 5 - 10, Urine WBC Negative, Ur Epithelial Cells 1 - 3 12/11/16 12:10: Sodium 137, Potassium 4.0, Chloride 103, Carbon Dioxide 24, Anion Gap 14, BUN 15, Creatinine 0.4 L, Est GFR ( Amer) > 60, Est GFR ( Non-Af Amer) > 60, Random Glucose 137 H, Calcium 8.9, Magnesium 2.0, Total Bilirubin 0.8, AST 30, ALT 28, Alkaline Phosphatase 77, Total Protein 6.8, Albumin 4.0, Globulin 2.8, Albumin/Globulin Ratio 1.4, Lipase 92 12/11/16 12:10: WBC 5.6 D, RBC 3.83, Hgb 12.0, Hct 34.8 L, MCV 90.9, MCH 31.3, MCHC 34.5, RDW 13.4, Plt Count 262, MPV 9.4, Gran % 52.9, Lymph % (Auto) 35.6 H , [place] % (Auto) 9.0 H, Eos % (Auto) 2.1, Baso % (Auto) 0.4, Gran # 2.98, Lymph # 2.0, [place] # 0.5, Eos # 0.1, Baso # 0.02 - RAD Interpretation Radiology Orders: 12/11/16 11:57 RIBS RIGHT & PA CHEST [RAD] Stat 12/11/16 12:42 ABD & PELVIS IV CONTRAST ONLY [CT] Stat 12/11/16 13:26 HIP MIN 2V W/ PELVIS RT [RAD] Stat - Medication Orders Current Medication Orders: Discontinued Medications Morphine Sulfate (Morphine) 2 mg IVP STAT STA Stop: 12/11/16 12:01 Last Admin: 12/11/16 12:27 Dose: 2 mg MAR Pain Assessment Document 12/11/16 12:27 CNR (Rec: 12/11/16 12:28 CNR [id number]) Pain Reassessment Is this a pain reassessment? Yes IVP Administration Document 12/11/16 12:27 CNR (Rec: 12/11/16 12:28 CNR [id number]) Charges for Administration # of IVP Administrations 1 Ondansetron HCl (Zofran Inj) 4 mg IVP STAT STA Stop: 12/11/16 13:50 Last Admin: 12/11/16 13:54 Dose: Not Given Non-Admin Reason: Patient Refused Sodium Phosphate (Fleet Enema) 135 ml RC STAT STA Stop: 12/11/16 14:32 Last Admin: 12/11/16 14:50 Dose: 135 ml Disposition/Present on Arrival - Present on Arrival Any Indicators Present on Arrival: No History of DVT/PE: No History of Uncontrolled Diabetes: No Urinary Catheter: No History of Decub. Ulcer: No History Surgical Site Infection Following: None - Disposition Have Diagnosis and Disposition been Completed?: Yes Disposition Time: 14:21 Patient Plan: Discharge - Disposition Diagnosis: Fecal impaction in rectum Disposition: HOME/ ROUTINE Condition: STABLE Discharge Instructions (ExitCare): Constipation (ED), Fecal Impaction (ED) Referrals: PCP,NO [Primary Care Provider] - Follow up with primary Forms: [facility] (Yakut)
[2016-12-11 12:24] LABS: BASO # 0.02 K/mm3 (0.0-2.0); BASO % 0.4 % (0.0-3.0); EOS # 0.1 (0.0-0.7); EOS % 2.1 % (1.5-5.0); GRAN # 2.98 (1.4-6.5); GRAN % 52.9 % (50.0-68.0); HEMATOCRIT 34.8 % (36.0-48.0); LYMPH % 35.6 % (22.0-35.0); MEAN CELL VOLUME 90.9 fl (80.0-105.0); MEAN CORPUSCULAR HEMOGLOBIN 31.3 pg (25.0-35.0); MEAN CORPUSCULAR HGB CONC 34.5 g/dl (31.0-37.0); MEAN PLATELET VOLUME 9.4 fl (7.0-11.0); MONO # 0.5 (0.1-0.6); RED CELL DISTRIBUTION WIDTH 13.4 % (11.5-14.5); WHITE BLOOD COUNT 5.6 10^3/ul (4.5-11.0)
[2016-12-11 12:38] LABS: ALB/GLOB RATIO 1.4 (1.1-1.8); ALKALINE PHOSPHATASE 77 U/L (38-126); ALT/SGPT 28 U/L (7-56); AST/SGOT 30 U/L (14-36); BILIRUBIN,TOTAL 0.8 mg/dL (0.2-1.3); BLOOD UREA NITROGEN 15 mg/dL (7-21); CALCIUM 8.9 mg/dL (8.4-10.5); CARBON DIOXIDE 24 mmol/L (21-33); CHLORIDE 103 mmol/L (95-110); GFR AFRICAN-AMERICAN > 60; GLUCOSE,RANDOM 137 mg/dL (70-110); LIPASE 92 U/L (23-300); SODIUM 137 mmol/L (132-148); TOTAL PROTEIN 6.8 g/dL (5.8-8.3)
[2016-12-11] MEDS ORDERED: Iohexol 350 MG/100 ML VIAL ONE (13:11)
--- NOTE | 2016-12-11 14:01 | RAD ---
PROCEDURE: Radiographs of the Chest and Right Ribs. HISTORY: pain COMPARISON: None available. TECHNIQUE: Frontal radiograph of the chest and multiple oblique radiographs of the right ribs were obtained. FINDINGS: RIGHT RIBS: No fracture or focal lesion visualized. LUNGS: Clear. PLEURA: No pneumothorax or pleural fluid. CARDIOVASCULAR: Moderate cardiomegaly OTHER FINDINGS: There is a large hiatal hernia which extends into the right side of the chest. IMPRESSION: Unremarkable radiographs of the chest and right ribs. No right rib fracture.
--- NOTE | 2016-12-11 14:03 | RAD ---
PROCEDURE: Right Hip and pelvis Radiographs. HISTORY: pain COMPARISON: None. FINDINGS: BONES: Normal. No fracture. JOINTS: Normal. SOFT TISSUES: Normal. OTHER FINDINGS: None. IMPRESSION: Negative study
--- NOTE | 2016-12-11 14:11 | CT ---
PROCEDURE: CT Abdomen and Pelvis with contrast HISTORY: right sided pain COMPARISON: 05/28/2016 CT TECHNIQUE: Contrast dose: 100 cc of Omni 350 Radiation dose: Total exam DLP = 892 mGy-cm. This CT exam was performed using one or more of the following dose reduction techniques: Automated exposure control, adjustment of the mA and/or kV according to patient size, and/or use of iterative reconstruction technique. FINDINGS: LOWER THORAX: There is a large hiatal hernia. The majority of the stomach lies above the diaphragm. There is an air-fluid level. Small pleural effusions. LIVER: Unremarkable. No gross lesion or ductal dilatation. GALLBLADDER AND BILE DUCTS: Unremarkable. PANCREAS: Unremarkable. No gross lesion or ductal dilatation. SPLEEN: Unremarkable. ADRENALS: Unremarkable. No mass. KIDNEYS AND URETERS: Unremarkable. No hydronephrosis. No solid mass. VASCULATURE: Unremarkable. No aortic aneurysm. BOWEL: Unremarkable. No obstruction. No gross mural thickening. There is a moderate constipation with fecal stasis in the rectosigmoid APPENDIX: Normal appendix. PERITONEUM: Unremarkable. No free fluid. No free air. LYMPH NODES: Unremarkable. No enlarged lymph nodes. BLADDER: Unremarkable. REPRODUCTIVE: Unremarkable. BONES: No acute fracture. OTHER FINDINGS: None. IMPRESSION: No acute intra-abdominal findings Large hiatal hernia. Small bilateral pleural effusions
[2016-12-11 14:55] LABS: URINE BILIRUBIN NEGATIVE (NEGATIVE); URINE BLOOD SMALL (NEGATIVE); URINE GLUCOSE (UA) NEGATIVE (NEGATIVE); URINE KETONE NEGATIVE (NEGATIVE); URINE LEUKOCYTE ESTERASE NEGATIVE Leu/uL (NEGATIVE); URINE PROTEIN NEGATIVE mg/dL (<30 mg/dL); URINE UROBILINOGEN 0.2 E.U./dL (<1 E.U./dL)
[2016-12-11 14:58] LABS: URINE APPEARANCE SL CLOUDY (CLEAR); URINE COLOR YELLOW (YELLOW)
[2016-12-11 15:03] LABS: URINE WBC NEGATIVE /hpf (0-6)
[2016-12-11 15:12] VITALS: BP 140/55; PULSE 81; RESP 18; O2SAT 95
--- NOTE | 2016-12-12 11:46 | CARD ---
APPROVED REPORT EKG Measurement Heart [id number] <Conclusion> Sinus rhythm with frequent and consecutive premature ventricular complexes Prolonged QT Abnormal ECG
== END 2016-12-11 16:08 | disposition home or self-care (01) ==
LOC: ED 11:37
DX: K56.41 Fecal impaction (principal); I10 Essential (primary) hypertension; F03.90 Unspecified dementia, unspecified severity, without behavioral disturbance, psychotic disturbance, mood disturbance, and anxiety; Z87.81 Personal history of (healed) traumatic fracture
CPT/HCPCS: 71101; 73502; 74177; 80053; 81001; 83690; 83735; 85025; 93005; 96374; 99284; J2270; Q9967